=== PATIENT | female | born 1930 | race Caucasian/White ===

== ENCOUNTER 2016-04-24 17:53 | Inpatient (IN) | payer MEDICARE, BC ==
[2016-04-24] MEDS ORDERED: NS 0.9% 1000 ML* 2,000 ML IV ONE (19:22)
[2016-04-24 19:41] LABS: Hematocrit 42 % (35-47); Mean Corpuscular HGB Conc 33 g/dl (31-36); Mean Corpuscular Hemoglobin 30 pg (27-31); Mean Corpuscular Volume 90 fL (80-97); Mean Platelet Volume 10 um3 (7.4-10.4); Red Blood Count 4.68 10^6/ul (4.0-5.4); Red Cell Distribution Width 15 % (10.5-15); White Blood Count 13.3 10^3/ul (3.5-10.8)
[2016-04-24 19:53] LABS: Albumin 4.2 g/dL (3.2-5.2); BUN/Creatinine Ratio 18.3 (8-20); C Reactive Protein 2.63 mg/L (< 5.00); Calcium 10.1 mg/dL (8.6-10.3); EGFR African American 64.9 (>60); EGFR Non-African American 50.5 (>60); Globulin 3.1 g/dL (2-4); Magnesium 2.4 mg/dL (1.9-2.7); Potassium 3.9 mmol/L (3.5-5.0); Total Bilirubin 0.4 mg/dL (0.2-1.0); Total Protein 7.3 g/dL (6.4-8.9)
[2016-04-24 20:02] LABS: TSH (Thyroid Stimulating Horm) 4.41 mcIU/mL (0.34-5.60)
[2016-04-24] MEDS ORDERED: Ondansetron INJ* 2 MG/ML VIAL IV ONE (20:06)
[2016-04-24] MEDS ORDERED: Iodixanol* (CONTRAST) 320 MG/ML 100 ML SDV IV ONE (20:24)
[2016-04-24] MEDS ORDERED: Metoclopramide IV* 5 MG/ML 2 ML VIAL IV ONE (21:06)
--- NOTE | 2016-04-24 22:11 | RAD ---
Indication: Vomiting. CT of the abdomen and pelvis was performed after IV contrast administration. No oral contrast was given. Administered 85.0 ml of VISAPAQUE 320 mgi/ml. Coronal and sagittal reconstructed images were obtained. Lung bases demonstrate no pleural fluid, nodules or masses. Heart is of normal size without evidence of pericardial effusion. Liver is normal in size. There is no intrahepatic ductal dilatation is noted. There is a low density lesion in the lateral segment of the left lobe of liver measuring 8 mm may represent a small hemangioma. The gallbladder demonstrates multiple gallstones. No pericholecystic fluid or wall thickening is identified. Common duct is not dilated. Pancreas demonstrates no mass or pancreatic ductal dilatation. The spleen is normal in size. No adrenal masses are noted. The kidneys demonstrate symmetric nephrograms without focal lesions. Aorta and inferior vena cava are unremarkable. There are dilated loops of small bowel with a dilated stomach noted. There are collapsed distal loops of small bowel noted. There is likely a zone of transition in the left lower quadrant of the abdomen. This is consistent with a distal small bowel obstruction. Small amount of free fluid is noted in the cul-de-sac. The uterus and ovaries are unremarkable. IMPRESSION: FINDINGS CONSISTENT WITH SMALL BOWEL OBSTRUCTION WITH A ZONE OF TRANSITION IN THE LEFT LOWER QUADRANT. LITHIASIS WITHOUT BILIARY DUCTAL DILATATION. LOW DENSITY LESION IN THE LEFT LOBE OF LIVER MAY REPRESENT A SMALL HEMANGIOMA.
--- NOTE | 2016-04-24 22:31 | ED ---
Miguel A Davis Anna, scribed for Paco Arana MD on 04/24/16 at 1854 . GI/ HPI - HPI Summary HPI Summary: Patient is an 85 y/o female coming to presenting with sudden onset of vomiting that began at 10:30 this morning. She is vomiting every thirty minutes. The vomit is light green the first few times and has become a dark brown in more recent emesis. Exacerbated by food or water intake. Denies diarrhea, blood in the stool, abd surgery, abd pain, bloating, hx of CHF. No BM today. BM yesterday was normal. Twenty years ago she had a heart problem, but she does not normally collect fluid. - History of Current Complaint Chief Complaint: EDNauseaVomitDiarrh Time Seen by Provider: 04/24/16 18:28 Stated Complaint: GENERAL ILLNESS Hx Obtained From: Patient, Family/Stringer Machine Tender - Accompanied by Onset/Duration: Started Hours Ago, Still Present Timing: Lasting Hours Pain Intensity: 4 - Allergy/Home Medications Allergies/Adverse Reactions: Allergies Allergy/AdvReac Type Severity Reaction Status Date / Time Codeine Allergy Severe Nausea And Verified 01/04/15 13:46 Vomiting Influenza Vaccines Allergy Unknown Unknown Verified 01/04/15 13:46 Reaction Details Home Medications: Home Medications Ezetimibe TAB* [Zetia TAB*] 10 mg PO DAILY 04/24/16 [History Confirmed 04/24/16] PMH/Surg Hx/FS Hx/Imm Hx Previously Healthy: No Endocrine/Hematology History: Reports: Hx Anticoagulant Therapy - HX COUMADIN Cardiovascular History: Reports: Hx Coronary Artery Disease, Hx Deep Vein Thrombosis - RLE DVT 2011, Hx Hypercholesterolemia, Hx Hypertension, Other Cardiovascular Problems/Disorders - CHRONIC LE EDEMA, BUT PT STATES NO LONGER ON DIURETIC GI History: Reports: Hx Gastroesophageal Reflux Disease Denies: Hx Gastrointestinal Bleed - NEW DX LOWER GI BLEED 12/29/12 Sensory History: Reports: Hx Contacts or Glasses Opthamlomology History: Reports: Hx Contacts or Glasses Neurological History: Reports: Other Neuro Impairments/Disorders - 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 PERCUTANIOUS TRANSLUMINAL CORONARY ANGIOPLASTY Infectious Disease History: No Infectious Disease History: Denies: Traveled Outside the [place] in Last 30 Days - Family History Known Family History: Positive: Hypertension - Social History Occupation: Retired Lives: With Family Alcohol Use: Daily Substance Use Type: Reports: None Smoking Status (MU): Never Smoked Tobacco Review of Systems Positive: Vomiting Psychological: Normal All Other Systems Reviewed And Are Negative: Yes Physical Exam Triage Information Reviewed: Yes Vital Signs On Initial Exam: Initial Vitals Temp Pulse Resp BP Pulse Ox 98.7 F 89 20 161/107 94 04/24/16 18:16 04/24/16 18:16 04/24/16 18:16 04/24/16 18:16 04/24/16 18:16 Vital Signs Reviewed: Yes Appearance: Positive: No Pain Distress, Ill-Appearing - Mildly Skin: Positive: Warm, Skin Color Reflects Adequate Perfusion, Dry Head/Face: Positive: Normal Head/Face Inspection Eyes: Positive: EOMI, LEIDY ENT: Positive: Normal ENT inspection Neck: Positive: Supple, Nontender Respiratory/Lung Sounds: Positive: Clear to Auscultation, Breath Sounds Present Cardiovascular: Positive: RRR Abdomen Description: Positive: Nontender, Soft Bowel Sounds: Positive: Hypoactive Musculoskeletal: Positive: Normal, Strength/ROM Intact Neurological: Positive: Normal, Sensory/Motor Intact, Alert, Oriented to Person Place, Time Psychiatric: Positive: Affect/Mood Appropriate - Neche Coma Scale Coma Scale Total: 15 Diagnostics - Vital Signs Vital Signs Temp Pulse Resp BP Pulse Ox 04/24/16 18:30 84 18 172/96 98 04/24/16 18:29 82 18 98 04/24/16 18:27 145/82 04/24/16 18:16 98.7 F 89 20 161/107 94 - Laboratory Lab Results: Lab Results 04/24/16 04/24/16 04/24/16 Range/Units 18:00 18:00 18:00 WBC 13.3 H (3.5-10.8) 10^3/ul RBC 4.68 (4.0-5.4) 10^6/ul Hgb 14.0 (12.0-16.0) g/dl Hct 42 (35-47) % MCV 90 (80-97) fL MCH 30 (27-31) pg MCHC 33 (31-36) g/dl RDW 15 (10.5-15) % Plt Count 283 (150-450) 10^3/ul MPV 10 (7.4-10.4) um3 Neut % (Auto) 74.6 (38-83) % Lymph % (Auto) 19.0 L (25-47) % [place] % (Auto) 4.8 (1-9) % Eos % (Auto) 1.0 (0-6) % Baso % (Auto) 0.6 (0-2) % Absolute Neuts (auto) 9.9 H (1.5-7.7) 10^3/ul Absolute Lymphs (auto) 2.5 (1.0-4.8) 10^3/ul Absolute Monos (auto) 0.6 (0-0.8) 10^3/ul Absolute Eos (auto) 0.1 (0-0.6) 10^3/ul Absolute Basos (auto) 0.1 (0-0.2) 10^3/ul Absolute Nucleated RBC 0.01 10^3/ul Nucleated RBC % 0 INR (Anticoag Therapy) 0.85 L (0.89-1.11) APTT 22.5 L (26.0-36.3) seconds Sodium 137 (133-145) mmol/L Potassium 3.9 (3.5-5.0) mmol/L Chloride 102 (101-111) mmol/L Carbon Dioxide 26 (22-32) mmol/L Anion Gap 9 (2-11) mmol/L BUN 19 (6-24) mg/dL Creatinine 1.04 H (0.51-0.95) mg/dL Est GFR ( Amer) 64.9 (>60) Est GFR (Non-Af Amer) 50.5 (>60) BUN/Creatinine Ratio 18.3 (8-20) Glucose 129 H (70-100) mg/dL Calcium 10.1 (8.6-10.3) mg/dL Magnesium 2.4 (1.9-2.7) mg/dL Total Bilirubin 0.40 (0.2-1.0) mg/dL AST 22 (13-39) U/L ALT 21 (7-52) U/L Alkaline Phosphatase 98 (34-104) U/L Total Creatine Kinase 49 (10-223) U/L CK-MB (CK-2) 1.4 (0.6-6.3) ng/mL Troponin I 0.00 (<0.04) ng/mL C-Reactive Protein 2.63 (< 5.00) mg/L Total Protein 7.3 (6.4-8.9) g/dL Albumin 4.2 (3.2-5.2) g/dL Globulin 3.1 (2-4) g/dL Albumin/Globulin Ratio 1.4 (1-3) Lipase 15 (11.0-82.0) U/L TSH 4.41 (0.34-5.60) mcIU/mL Influenza A (Rapid) (Negative) Influenza B (Rapid) (Negative) 04/24/16 Range/Units 20:43 WBC (3.5-10.8) 10^3/ul RBC (4.0-5.4) 10^6/ul Hgb (12.0-16.0) g/dl Hct (35-47) % MCV (80-97) fL MCH (27-31) pg MCHC (31-36) g/dl RDW (10.5-15) % Plt Count (150-450) 10^3/ul MPV (7.4-10.4) um3 Neut % (Auto) (38-83) % Lymph % (Auto) (25-47) % [place] % (Auto) (1-9) % Eos % (Auto) (0-6) % Baso % (Auto) (0-2) % Absolute Neuts (auto) (1.5-7.7) 10^3/ul Absolute Lymphs (auto) (1.0-4.8) 10^3/ul Absolute Monos (auto) (0-0.8) 10^3/ul Absolute Eos (auto) (0-0.6) 10^3/ul Absolute Basos (auto) (0-0.2) 10^3/ul Absolute Nucleated RBC 10^3/ul Nucleated RBC % INR (Anticoag Therapy) (0.89-1.11) APTT (26.0-36.3) seconds Sodium (133-145) mmol/L Potassium (3.5-5.0) mmol/L Chloride (101-111) mmol/L Carbon Dioxide (22-32) mmol/L Anion Gap (2-11) mmol/L BUN (6-24) mg/dL Creatinine (0.51-0.95) mg/dL Est GFR ( Amer) (>60) Est GFR (Non-Af Amer) (>60) BUN/Creatinine Ratio (8-20) Glucose (70-100) mg/dL Calcium (8.6-10.3) mg/dL Magnesium (1.9-2.7) mg/dL Total Bilirubin (0.2-1.0) mg/dL AST (13-39) U/L ALT (7-52) U/L Alkaline Phosphatase (34-104) U/L Total Creatine Kinase (10-223) U/L CK-MB (CK-2) (0.6-6.3) ng/mL Troponin I (<0.04) ng/mL C-Reactive Protein (< 5.00) mg/L Total Protein (6.4-8.9) g/dL Albumin (3.2-5.2) g/dL Globulin (2-4) g/dL Albumin/Globulin Ratio (1-3) Lipase (11.0-82.0) U/L TSH (0.34-5.60) mcIU/mL Influenza A (Rapid) Negative (Negative) Influenza B (Rapid) Negative (Negative) Result Diagrams: 04/24/16 18:00 04/24/16 18:00 Lab Statement: Any lab studies that have been ordered have been reviewed, and results considered in the medical decision making process. - CT CT Abd/Pel CT Interpretation: Positive (See Comments) CT Interpretation Completed By: Radiologist - IMPRESSION: FINDINGS CONSISTENT WITH SMALL BOWEL OBSTRUCTION WITH A ZONE OF TRANSITION IN THE LEFT LOWER QUADRANT. LITHIASIS WITHOUT BILIARY DUCTAL DILATATION. LOW DENSITY LESION IN THE LEFT LOBE OF LIVER MAY REPRESENT A SMALL HEMANGIOMA. GIGU Course/Dx - Course Assessment/Plan: DISCUSSED RESULTS WITH PATIENT. SURGERY CONSULTED AND SAW PATIENT IN ED. ADMIT HOSPITALIST STABLE. - Diagnoses Provider Diagnoses: SBO (small bowel obstruction) - Physician Notifications Discussed Care Of Patient With: Dr. Lackey (hospitalist) at 22:19. Accepts patient for admission. Dr. Dupree (surgeon) at 22:21. Patient will be seen by Dr. Dupree. Discharge - Discharge Plan Condition: Stable Disposition: ADMITTED TO [facility] Referrals: Aroldo Gomez MD [Primary Care Provider] - The documentation as recorded by the Miguel A chowdary Anna accurately reflects the service I personally performed and the decisions made by me, Paco Arana MD.
--- NOTE | 2016-04-24 22:33 | HP ---
H&P (Free Text) History and Physical: PCP: Sera Gomez MD Date/Time of Evaluation: 04/24/2016 2245 CC: abdominal pain, N/V HPI: Mrs Rice is an 85YO female reporting onset of abdominal pain and bloating associated with intractable N/V yesterday AM around 1030. She continued to worsen throughout today with symptoms becoming severe enough to prompt her to present this evening. She denies F/C, diarrhea, change in bowel/ bladder, black or bloody content to emesis, or other issues. Work up reveals a CT abd/pel W revealing a SBO with transition in the LLQ which is unexpected as she has no history of abdominal surgery and no prior SBO. Ramila Dupree MD evaluated her in the ED and agrees there is no surgical abdomen at this time. He will continue to follow. PMedHx B subdural hematoma 12/2011 while on warfarin after a fall s/p B debi holes via Star Moise MD neurosurgery LLE DVT 08/2011 CAD s/p angioplasty x2 HTN HLD GERD Allergies Influenza Vaccines Allergy (Unknown, Verified 01/04/15 13:46) Unknown Reaction Details pt states allergic to components, not eggs. Codeine Adverse Reaction (Mild, Verified 04/24/16 22:42) Nausea And Vomiting Ambulatory Orders Omeprazole CAP* [PriLOSEC CAP*] 40 mg PO DAILY 09/11/12 Aspirin EC Low Dose* [Ecotrin EC Low Dose*] 81 mg PO DAILY 12/29/12 Diltiazem CD CAP* [Cardizem CD CAP*] 180 mg PO DAILY 01/04/15 LevoCETirizine TAB (NF) [Xyzal TAB (NF)] 5 mg PO DAILY 01/04/15 Ezetimibe TAB* [Zetia TAB*] 10 mg PO DAILY 04/24/16 PSurgHx no abdominal procedures SocHx: former smoker w/ ~20PYHX, social alcohol, no recreational drugs; lives at home with her , has 1 adult daughter, 1 son passed from suicide; full code status FamHx: reviewed, non-contributory to presentation ROS: as above, otherwise reviewed and all were negative Constitutional: NAD, normally developed, overweight white female vitals: Vital Signs Temp 37.1 C 04/24/16 18:16 Pulse 84 04/24/16 18:30 Resp 18 04/24/16 18:30 BP 172/96 04/24/16 18:30 Pulse Ox 98 04/24/16 18:30 Intake & Output 04/23/16 04/24/16 04/24/16 23:59 11:59 23:59 Intake Total 2049 Balance 2049 Weight 150 lb Intake: IV Fluids 1999 IVPB 50 HEENM: atraumatic; sclera/conjunctiva: non-icteric/clear; hearing: clinically intact; oropharynx: clear, mucosa moist Neck: soft tissue: non-tender; thyroid: normal Pulmonary: clear to auscultation bilaterally, good aeration, no accessory muscle use CV: RR/RR, normal S1S2, no carotid bruit, no jugular venous distention, 2+ B DP/ PT, no edema Abdominal: soft, mildly distended, mild to moderate diffuse tenderness without rebound/guarding/rigidity, hyperactive bowel sounds, no hepatosplenomegaly or masses, no costovertebral angle tenderness Musculoskeletal: general: grossly intact; gait: stable Integumental: normal appearance and texture Psychiatric orientation: AA&O to PPS affect: ill-appearing mood: pleasant eye contact: good content: reliable responses: timely insight: good Testing: Lab Results 04/24/16 04/24/16 04/24/16 Range/Units 18:00 18:00 18:00 WBC 13.3 H (3.5-10.8) 10^3/ul RBC 4.68 (4.0-5.4) 10^6/ul Hgb 14.0 (12.0-16.0) g/dl Hct 42 (35-47) % MCV 90 (80-97) fL MCH 30 (27-31) pg MCHC 33 (31-36) g/dl RDW 15 (10.5-15) % Plt Count 283 (150-450) 10^3/ul MPV 10 (7.4-10.4) um3 Neut % (Auto) 74.6 (38-83) % Lymph % (Auto) 19.0 L (25-47) % [place] % (Auto) 4.8 (1-9) % Eos % (Auto) 1.0 (0-6) % Baso % (Auto) 0.6 (0-2) % Absolute Neuts (auto) 9.9 H (1.5-7.7) 10^3/ul Absolute Lymphs (auto) 2.5 (1.0-4.8) 10^3/ul Absolute Monos (auto) 0.6 (0-0.8) 10^3/ul Absolute Eos (auto) 0.1 (0-0.6) 10^3/ul Absolute Basos (auto) 0.1 (0-0.2) 10^3/ul Absolute Nucleated RBC 0.01 10^3/ul Nucleated RBC % 0 INR (Anticoag Therapy) 0.85 L (0.89-1.11) APTT 22.5 L (26.0-36.3) seconds Sodium 137 (133-145) mmol/L Potassium 3.9 (3.5-5.0) mmol/L Chloride 102 (101-111) mmol/L Carbon Dioxide 26 (22-32) mmol/L Anion Gap 9 (2-11) mmol/L BUN 19 (6-24) mg/dL Creatinine 1.04 H (0.51-0.95) mg/dL Est GFR ( Amer) 64.9 (>60) Est GFR (Non-Af Amer) 50.5 (>60) BUN/Creatinine Ratio 18.3 (8-20) Glucose 129 H (70-100) mg/dL Calcium 10.1 (8.6-10.3) mg/dL Magnesium 2.4 (1.9-2.7) mg/dL Total Bilirubin 0.40 (0.2-1.0) mg/dL AST 22 (13-39) U/L ALT 21 (7-52) U/L Alkaline Phosphatase 98 (34-104) U/L Total Creatine Kinase 49 (10-223) U/L CK-MB (CK-2) 1.4 (0.6-6.3) ng/mL Troponin I 0.00 (<0.04) ng/mL C-Reactive Protein 2.63 (< 5.00) mg/L Total Protein 7.3 (6.4-8.9) g/dL Albumin 4.2 (3.2-5.2) g/dL Globulin 3.1 (2-4) g/dL Albumin/Globulin Ratio 1.4 (1-3) Lipase 15 (11.0-82.0) U/L TSH 4.41 (0.34-5.60) mcIU/mL Influenza A (Rapid) (Negative) Influenza B (Rapid) (Negative) 04/24/16 Range/Units 20:43 WBC (3.5-10.8) 10^3/ul RBC (4.0-5.4) 10^6/ul Hgb (12.0-16.0) g/dl Hct (35-47) % MCV (80-97) fL MCH (27-31) pg MCHC (31-36) g/dl RDW (10.5-15) % Plt Count (150-450) 10^3/ul MPV (7.4-10.4) um3 Neut % (Auto) (38-83) % Lymph % (Auto) (25-47) % [place] % (Auto) (1-9) % Eos % (Auto) (0-6) % Baso % (Auto) (0-2) % Absolute Neuts (auto) (1.5-7.7) 10^3/ul Absolute Lymphs (auto) (1.0-4.8) 10^3/ul Absolute Monos (auto) (0-0.8) 10^3/ul Absolute Eos (auto) (0-0.6) 10^3/ul Absolute Basos (auto) (0-0.2) 10^3/ul Absolute Nucleated RBC 10^3/ul Nucleated RBC % INR (Anticoag Therapy) (0.89-1.11) APTT (26.0-36.3) seconds Sodium (133-145) mmol/L Potassium (3.5-5.0) mmol/L Chloride (101-111) mmol/L Carbon Dioxide (22-32) mmol/L Anion Gap (2-11) mmol/L BUN (6-24) mg/dL Creatinine (0.51-0.95) mg/dL Est GFR ( Amer) (>60) Est GFR (Non-Af Amer) (>60) BUN/Creatinine Ratio (8-20) Glucose (70-100) mg/dL Calcium (8.6-10.3) mg/dL Magnesium (1.9-2.7) mg/dL Total Bilirubin (0.2-1.0) mg/dL AST (13-39) U/L ALT (7-52) U/L Alkaline Phosphatase (34-104) U/L Total Creatine Kinase (10-223) U/L CK-MB (CK-2) (0.6-6.3) ng/mL Troponin I (<0.04) ng/mL C-Reactive Protein (< 5.00) mg/L Total Protein (6.4-8.9) g/dL Albumin (3.2-5.2) g/dL Globulin (2-4) g/dL Albumin/Globulin Ratio (1-3) Lipase (11.0-82.0) U/L TSH (0.34-5.60) mcIU/mL Influenza A (Rapid) Negative (Negative) Influenza B (Rapid) Negative (Negative) CT abd/pel W, personally reviewed: IMPRESSION: FINDINGS CONSISTENT WITH SMALL BOWEL OBSTRUCTION WITH A ZONE OF TRANSITION IN THE LEFT LOWER QUADRANT. LITHIASIS WITHOUT BILIARY DUCTAL DILATATION. LOW DENSITY LESION IN THE LEFT LOBE OF LIVER MAY REPRESENT A SMALL HEMANGIOMA. Impression: 85F presents with SBO, transition in LLQ, no HX abdominal surgery DIAGNOSIS & PLAN Primary SBO : transition in LLQ, no HX abdominal surgery : W MD Joon surgery evaluated in ED, will follow : NG to LIS : strict I&Os : NPO : pain control : anti-emetics : check 2vXRY abdomen in AM : supportive care Secondary B subdural hematoma 12/2011 : while on warfarin after a fall s/p B debi holes via Star Moise MD neurosurgery : no acute issues LLE DVT 08/2011 : SCDs & heparin SQ CAD : s/p angioplasty x2 : hold aspirin until able to take PO again HTN : hold diltiazem CD until able to take PO again : IV hydralazine PRN HLD : hold exetimibe until taking PO GERD : pantoprazole IV Admission Rational: inpatient for management of SBO not anticipated to resolve adequately to allow for discharge w/i 48h DVTp: SCDs & heparin SQ Code Status: full HCP:
[2016-04-24] MEDS ORDERED: LORazepam INJ* 2 MG/ML 1 ML VIAL IV PRN (22:39)
[2016-04-24] MEDS ORDERED: HYDROmorphone INJ* 1 MG/ML CARPUJECT SYRINGE IV PRN (22:39)
[2016-04-24] MEDS ORDERED: Acetaminophen SUPP* 650 MG SUPP PR PRN (22:41)
[2016-04-24] MEDS ORDERED: PROCHLORPERAZINE INJ 5 MG/ML 2 ML VIAL IV PRN (22:41)
[2016-04-24] MEDS ORDERED: Ondansetron INJ* 2 MG/ML VIAL IV PRN (22:41)
[2016-04-24] MEDS: NS 0.9% 1000 ML* 1,000 ML IV SCH (23:31)
[2016-04-24] MEDS ORDERED: hydrALAZINE IV* 20 MG/ML VIAL IV PRN (23:33)
[2016-04-25] MEDS: Pantoprazole IV* 40 MG IV SCH ×2 (00:04→08:19)
--- NOTE | 2016-04-25 00:21 | CONS ---
CONSULTATION REPORT: DATE OF CONSULTATION: 04/24/16 REFERRING PROVIDER: Alvin Lackey MD. REASON FOR CONSULTATION: Small bowel obstruction. HISTORY OF PRESENT ILLNESS: Ms. Lalitha Rice is an 85-year-old woman who was doing well in her usual state of health, this morning when she woke up, did not have her normal bowel movement. Later in the morning, she developed both abdominal pain and profuse nausea and vomiting, which she described as bilious, which carried over the course of the day and presented to the emergency room some time this afternoon. She has not had any flatus nor a bowel movement. She did have a normal bowel movement yesterday. She has had some mild discomfort, nothing severe. She has had no back discomfort. No fever, shakes, or chills. In the emergency room, she was noted to be afebrile with normal vital signs. Laboratory workup included white blood cell count of 13,000. She underwent a CT scan of the abdomen and pelvis, which I did review. This was done without oral contrast due to her profuse vomiting. This does show some distended proximal small bowel and stomach with some collapsed small bowel distally with likely a zone of transition in left lower quadrant. No other acute findings. There was no free fluid noted. She does have gallstones; however, without evidence of cholecystitis. She has not had prior abdominal surgery. She states she underwent a colonoscopy with Dr. Lopez several years ago, which was unremarkable. PAST MEDICAL HISTORY: 1. Peripheral vascular disease. 2. Gastroesophageal reflux disease. 3. Hypercholesterolemia. PAST SURGICAL HISTORY: Bilateral open carotid endarterectomies. MEDICATIONS: Include: 1. Xyzal 5 mg daily. 2. Aspirin 81 mg daily. 3. Omeprazole 40 mg daily. 4. Zetia 10 mg daily. 5. Diltiazem 180 mg daily. ALLERGIES: She is allergic to CODEINE and INFLUENZA VACCINE. SOCIAL HISTORY: She is . Lives with her . She has a well-grown daughter who lives in the area. Does not use tobacco. Drinks alcohol on a social basis. PHYSICAL EXAMINATION: Temperature 98.7, pulse 85, blood pressure 172/96. In general, she is a well-developed elderly woman who actually appears much younger than her stated age. She is awake, alert, vibrant, in no apparent distress. Lungs: Clear to auscultation with normal respiratory effort. Heart was regular rate and rhythm without murmurs, rubs, gallops. Her abdomen is soft , slightly distended. No prior surgical incision. There is no inguinal, umbilical, incisional or ventral hernias. She had decreased bowel sounds throughout but there are some bowel sounds that are rushing but not high pitched or tinkling. She has some mild tenderness. There is no rebound, guarding, peritoneal signs or rigidity. Psychiatric: She is awake, alert and oriented x3. She has normal judgment and insight. IMPRESSION: Nausea, vomiting with a CT scan consistent with a small bowel obstruction in a woman who has not had prior abdominal surgery. This has been present for less than just about 12 hours. No signs of peritonitis. She also has gallstones on her CT scan. Certainly this may be something more typical of a gastroenteritis and not a true bowel obstruction; however, certainly could have an adhesive small bowel disease or even gallstone ileus in someone her age, although she gives no recent history of gallbladder issues or problems with right upper quadrant abdominal pain of that nature. For now, she is being admitted to the hospitalist service and a nasogastric tube is to be inserted. She will be kept n.p.o. Repeat laboratory values and abdominal x- rays will be obtained tomorrow. Follow her course clinically over the next 24 to 48 hours. If she worsens or abdominal films do not improve, she may require laparoscopy and/or laparotomy. We discussed all of this with her. Thank you for the consultation. We will follow her closely with you. CC: [facility]; Aroldo Gomez MD * [id number]/[facility] #: [id number] LIAM
[2016-04-25] MEDS: Heparin VIAL(*) 5000 UNITS/ML VIAL (FIVE THOUSAND) SUBCUT SCH ×3 (05:42→22:05)
[2016-04-25 05:47] LABS: Hematocrit 40 % (35-47); Hemoglobin 13.1 g/dl (12.0-16.0); Mean Corpuscular HGB Conc 33 g/dl (31-36); Mean Corpuscular Hemoglobin 30 pg (27-31); Mean Corpuscular Volume 91 fL (80-97); Mean Platelet Volume 10 um3 (7.4-10.4); Red Blood Count 4.36 10^6/ul (4.0-5.4); Red Cell Distribution Width 15 % (10.5-15); White Blood Count 11.3 10^3/ul (3.5-10.8)
[2016-04-25 06:09] LABS: Calcium 8.6 mg/dL (8.6-10.3); EGFR African American 77.7 (>60); EGFR Non-African American 60.4 (>60); Potassium 3.6 mmol/L (3.5-5.0)
--- NOTE | 2016-04-25 08:07 | RAD ---
HISTORY: Follow-up small bowel obstruction COMPARISONS: CT dated April 24, 2016 VIEWS: Frontal supine and upright views of the abdomen. FINDINGS: BOWEL: There is persistent distention mild dilatation of small bowel loops. This is somewhat decreased from the 04/24/2016 CT. There is large amount stool within the distal colon. CALCULI: There are no abnormal calculi. BONES AND SOFT TISSUES: Mild degenerative changes are noted. OTHER FINDINGS: The lung bases are clear. There is no subphrenic gas. A gastric tube is noted in the region of the pylorus. A gastric tube appears to be prepyloric, supine views. Contrast is noted within the bladder. IMPRESSION: PERSISTENT BUT IMPROVING SMALL BOWEL OBSTRUCTIVE PATTERN.
--- NOTE | 2016-04-25 11:00 | PN ---
Subjective Date of Service: 04/25/16 Interval History: Patient seen and examined at bedside. She is laying in bed with NGT to suction. She states she is feeling "much better" this morning. She denies fever/chills, CP, SOB, abd pain, n/v. She would like the NGT removed as soon as possible but understands why she has it in. Denies flatus or BM. She states that she is planning on getting up and walking around later on this morning. Family History: Unchanged from Admission Social History: Unchanged from Admission Past Medical History: Unchanged from Admission Objective Active Medications: Acetaminophen (Tylenol Supp*) 650 mg [place] Q6H PRN PRN Reason: FEVER/PAIN Heparin Sodium (Porcine) (Heparin Vial(*)) 5,000 units SUBCUT Q8HR [facility] Last Admin: 04/25/16 05:42 Dose: 5,000 units Hydralazine HCl (Apresoline Iv*) 10 mg IV Q4H PRN PRN Reason: Systolic >160 Hydromorphone HCl (Dilaudid Iv*) 0.5 mg IV Q2H PRN PRN Reason: PAIN Last Admin: 04/24/16 23:30 Dose: 0.5 mg Sodium Chloride (Ns 0.9% 1000 Ml*) 1,000 mls @ 100 mls/hr IV PER RATE [facility] [place] Last Admin: 04/24/16 23:31 Dose: 100 mls/hr Lorazepam (Ativan Inj*) 0.5 mg IV BEDTIME PRN PRN Reason: SLEEP Ondansetron HCl (Zofran Inj*) 4 mg IV Q6H PRN PRN Reason: NAUSEA Pantoprazole Sodium (Protonix Iv*) 40 mg IV DAILY [facility] [place] Last Admin: 04/25/16 08:19 Dose: 40 mg Prochlorperazine Edisylate (Compazine Inj*) 10 mg IV Q6H PRN PRN Reason: NAUSEA Last Admin: 04/24/16 23:30 Dose: 10 mg Vital Signs 04/24/16 04/25/16 04/25/16 23:40 00:00 00:01 Temperature Pulse Rate 90 88 86 Respiratory 20 16 15 Rate Blood Pressure 146/74 125/56 (mmHg) O2 Sat by Pulse 88 93 93 Oximetry 04/25/16 04/25/16 04/25/16 00:08 00:30 00:57 Temperature 97.5 F Pulse Rate 82 Respiratory 12 14 16 Rate Blood Pressure 125/56 133/67 (mmHg) O2 Sat by Pulse Oximetry 04/25/16 03:35 Temperature 98.2 F Pulse Rate 83 Respiratory 18 Rate Blood Pressure 149/82 (mmHg) O2 Sat by Pulse 94 Oximetry Oxygen Devices in Use Now: None Appearance: Older female, lying in bed, in NAD, pleasant, cooperative. Eyes: PERRLA Ears/Nose/Mouth/Throat: Mucous Membranes Moist Neck: NL Appearance and Movements; NL JVP Respiratory: Symmetrical Chest Expansion and Respiratory Effort, Clear to Auscultation Cardiovascular: NL Sounds; No Murmurs; No JVD, RRR Abdominal: NL Sounds; No Tenderness; No Distention - mild diffuse tenderness, hypoactive BS Extremities: No Edema Skin: No Rash or Ulcers Neurological: Alert and Oriented x 3 Lines/Tubes/Other Access: Clean, Dry and Intact Peripheral IV Result Diagrams: 04/25/16 05:10 04/25/16 05:10 Additional Lab and Data: Lab Results 04/24/16 04/24/16 04/24/16 Range/Units 18:00 18:00 18:00 WBC 13.3 H (3.5-10.8) 10^3/ul RBC 4.68 (4.0-5.4) 10^6/ul Hgb 14.0 (12.0-16.0) g/dl Hct 42 (35-47) % MCV 90 (80-97) fL MCH 30 (27-31) pg MCHC 33 (31-36) g/dl RDW 15 (10.5-15) % Plt Count 283 (150-450) 10^3/ul MPV 10 (7.4-10.4) um3 Neut % (Auto) 74.6 (38-83) % Lymph % (Auto) 19.0 L (25-47) % [place] % (Auto) 4.8 (1-9) % Eos % (Auto) 1.0 (0-6) % Baso % (Auto) 0.6 (0-2) % Absolute Neuts (auto) 9.9 H (1.5-7.7) 10^3/ul Absolute Lymphs (auto) 2.5 (1.0-4.8) 10^3/ul Absolute Monos (auto) 0.6 (0-0.8) 10^3/ul Absolute Eos (auto) 0.1 (0-0.6) 10^3/ul Absolute Basos (auto) 0.1 (0-0.2) 10^3/ul Absolute Nucleated RBC 0.01 10^3/ul Nucleated RBC % 0 INR (Anticoag Therapy) 0.85 L (0.89-1.11) APTT 22.5 L (26.0-36.3) seconds Sodium 137 (133-145) mmol/L Potassium 3.9 (3.5-5.0) mmol/L Chloride 102 (101-111) mmol/L Carbon Dioxide 26 (22-32) mmol/L Anion Gap 9 (2-11) mmol/L BUN 19 (6-24) mg/dL Creatinine 1.04 H (0.51-0.95) mg/dL Est GFR ( Amer) 64.9 (>60) Est GFR (Non-Af Amer) 50.5 (>60) BUN/Creatinine Ratio 18.3 (8-20) Glucose 129 H (70-100) mg/dL Calcium 10.1 (8.6-10.3) mg/dL Magnesium 2.4 (1.9-2.7) mg/dL Total Bilirubin 0.40 (0.2-1.0) mg/dL AST 22 (13-39) U/L ALT 21 (7-52) U/L Alkaline Phosphatase 98 (34-104) U/L Total Creatine Kinase 49 (10-223) U/L CK-MB (CK-2) 1.4 (0.6-6.3) ng/mL Troponin I 0.00 (<0.04) ng/mL C-Reactive Protein 2.63 (< 5.00) mg/L Total Protein 7.3 (6.4-8.9) g/dL Albumin 4.2 (3.2-5.2) g/dL Globulin 3.1 (2-4) g/dL Albumin/Globulin Ratio 1.4 (1-3) Lipase 15 (11.0-82.0) U/L TSH 4.41 (0.34-5.60) mcIU/mL Influenza A (Rapid) (Negative) Influenza B (Rapid) (Negative) 04/24/16 Range/Units 20:43 WBC (3.5-10.8) 10^3/ul RBC (4.0-5.4) 10^6/ul Hgb (12.0-16.0) g/dl Hct (35-47) % MCV (80-97) fL MCH (27-31) pg MCHC (31-36) g/dl RDW (10.5-15) % Plt Count (150-450) 10^3/ul MPV (7.4-10.4) um3 Neut % (Auto) (38-83) % Lymph % (Auto) (25-47) % [place] % (Auto) (1-9) % Eos % (Auto) (0-6) % Baso % (Auto) (0-2) % Absolute Neuts (auto) (1.5-7.7) 10^3/ul Absolute Lymphs (auto) (1.0-4.8) 10^3/ul Absolute Monos (auto) (0-0.8) 10^3/ul Absolute Eos (auto) (0-0.6) 10^3/ul Absolute Basos (auto) (0-0.2) 10^3/ul Absolute Nucleated RBC 10^3/ul Nucleated RBC % INR (Anticoag Therapy) (0.89-1.11) APTT (26.0-36.3) seconds Sodium (133-145) mmol/L Potassium (3.5-5.0) mmol/L Chloride (101-111) mmol/L Carbon Dioxide (22-32) mmol/L Anion Gap (2-11) mmol/L BUN (6-24) mg/dL Creatinine (0.51-0.95) mg/dL Est GFR ( Amer) (>60) Est GFR (Non-Af Amer) (>60) BUN/Creatinine Ratio (8-20) Glucose (70-100) mg/dL Calcium (8.6-10.3) mg/dL Magnesium (1.9-2.7) mg/dL Total Bilirubin (0.2-1.0) mg/dL AST (13-39) U/L ALT (7-52) U/L Alkaline Phosphatase (34-104) U/L Total Creatine Kinase (10-223) U/L CK-MB (CK-2) (0.6-6.3) ng/mL Troponin I (<0.04) ng/mL C-Reactive Protein (< 5.00) mg/L Total Protein (6.4-8.9) g/dL Albumin (3.2-5.2) g/dL Globulin (2-4) g/dL Albumin/Globulin Ratio (1-3) Lipase (11.0-82.0) U/L TSH (0.34-5.60) mcIU/mL Influenza A (Rapid) Negative (Negative) Influenza B (Rapid) Negative (Negative) Assess/Plan/Problems-Billing Assessment: Ms. Rice is an 85 yo female with a PMH of bilateral subdural hematoma s/p debi holes in 2011, LLE DVT (2011), CAD, HTN, HLD, and GERD who presented to the ED on 04/24/16 with abd pain and n/v that is secondary to SBO. - Patient Problems (1) Small bowel obstruction Code(s): K56.69 - OTHER INTESTINAL OBSTRUCTION Comment: Appreciate surgery consult. Abdomen KUB this AM shows persistent but improving small bowel obstruction pattern. Continue NGT to low intermttent wall suction. NPO Continue IVF, prn analgesia, and prn anti-emetics. (2) CAD (coronary artery disease) Code(s): I25.10 - ATHSCL HEART DISEASE OF [place] CORONARY ARTERY W/O ANG PCTRS Comment: Resume home ASA when taking PO. Patient has a history of angioplasty x 2. (3) HTN (hypertension) Code(s): I10 - ESSENTIAL (PRIMARY) HYPERTENSION Comment: Normotensive. Continue PRN hydralazine while NPO. Resume diltiazem CD when taking PO. (4) HLD (hyperlipidemia) Code(s): E78.5 - HYPERLIPIDEMIA, UNSPECIFIED Comment: Resume ezetimibe when taking PO. (5) GERD (gastroesophageal reflux disease) Code(s): K21.9 - GASTRO-ESOPHAGEAL REFLUX DISEASE WITHOUT ESOPHAGITIS Comment : Continue IV pantoprazole. Resume PO omeprazole when taking PO. (6) History of subdural hematoma Code(s): Z86.79 - PERSONAL HISTORY OF OTHER DISEASES OF THE CIRCULATORY SYSTEM Comment: Occurred after fall, while on warfarin, in 2011, s/p debi holes. Not an acute issue. (7) History of DVT of lower extremity Code(s): Z86.718 - PERSONAL HISTORY OF OTHER VENOUS THROMBOSIS AND EMBOLISM Comment: LLE DVT in 2011, not currently on anticoagulation. Continue SQ heparin and SCDs. (8) DVT prophylaxis Comment: SCDs and SQ heparin Status and Disposition: Inpatient admission. Anticipate LOS >2 days.
--- NOTE | 2016-04-25 13:40 | PN ---
Progress Note - Progress Note SOAP: Subjective: Patient seen at 0745 this morning She feels better today-not having any abdominal pain and improved nausea with the NGT in. No flatus or BM Objective: Temp Pulse Resp BP Pulse Ox 98.2 F 83 16 149/82 94 04/25/16 03:35 04/25/16 03:35 04/25/16 08:00 04/25/16 03:35 04/25/16 03:35 Intake & Output 04/23/16 04/24/16 04/25/16 04/26/16 06:59 06:59 06:59 06:59 Intake Total 2200 659 Output Total 2500 Balance -300 659 Weight 154 lb 3.2 oz Intake: IV Fluids 2100 659 ns 659 IVPB 100 Oral 0 0 Output: NG Tube Drainage Amount 1000 Emesis 1500 Other: # Voids 1 PEX: Comfortable--awake and alert in NAD Abd is soft and non-distended. Bowel sounds are present; there are rushing sounds but they are not high pitched or tinkling. No tenderness on palpation, no guarding or rebound. Laboratory Last Values WBC 11.3 10^3/ul (3.5-10.8) H 04/25/16 05:10 RBC 4.36 10^6/ul (4.0-5.4) 04/25/16 05:10 Hgb 13.1 g/dl (12.0-16.0) 04/25/16 05:10 Hct 40 % (35-47) 04/25/16 05:10 MCV 91 fL (80-97) 04/25/16 05:10 MCH 30 pg (27-31) 04/25/16 05:10 MCHC 33 g/dl (31-36) 04/25/16 05:10 RDW 15 % (10.5-15) 04/25/16 05:10 Plt Count 264 10^3/ul (150-450) 04/25/16 05:10 MPV 10 um3 (7.4-10.4) 04/25/16 05:10 Neut % (Auto) 63.9 % (38-83) 04/25/16 05:10 Lymph % (Auto) 27.2 % (25-47) 04/25/16 05:10 [place] % (Auto) 7.0 % (1-9) 04/25/16 05:10 Eos % (Auto) 0.7 % (0-6) 04/25/16 05:10 Baso % (Auto) 1.2 % (0-2) 04/25/16 05:10 Absolute Neuts (auto) 7.2 10^3/ul (1.5-7.7) 04/25/16 05:10 Absolute Lymphs (auto) 3.1 10^3/ul (1.0-4.8) 04/25/16 05:10 Absolute Monos (auto) 0.8 10^3/ul (0-0.8) 04/25/16 05:10 Absolute Eos (auto) 0.1 10^3/ul (0-0.6) 04/25/16 05:10 Absolute Basos (auto) 0.1 10^3/ul (0-0.2) 04/25/16 05:10 Absolute Nucleated RBC 0.01 10^3/ul 04/25/16 05:10 Nucleated RBC % 0 04/25/16 05:10 INR (Anticoag Therapy) 0.85 (0.89-1.11) L 04/24/16 18:00 APTT 22.5 seconds (26.0-36.3) L 04/24/16 18:00 Sodium 139 mmol/L (133-145) 04/25/16 05:10 Potassium 3.6 mmol/L (3.5-5.0) 04/25/16 05:10 Chloride 107 mmol/L (101-111) 04/25/16 05:10 Carbon Dioxide 28 mmol/L (22-32) 04/25/16 05:10 Anion Gap 4 mmol/L (2-11) 04/25/16 05:10 BUN 16 mg/dL (6-24) 04/25/16 05:10 Creatinine 0.89 mg/dL (0.51-0.95) 04/25/16 05:10 Est GFR ( Amer) 77.7 (>60) 04/25/16 05:10 Est GFR (Non-Af Amer) 60.4 (>60) 04/25/16 05:10 BUN/Creatinine Ratio 18.0 (8-20) 04/25/16 05:10 Glucose 111 mg/dL (70-100) H 04/25/16 05:10 Lactic Acid 0.8 mmol/L (0.5-2.0) 04/25/16 08:31 Calcium 8.6 mg/dL (8.6-10.3) 04/25/16 05:10 Magnesium 2.4 mg/dL (1.9-2.7) 04/24/16 18:00 Total Bilirubin 0.40 mg/dL (0.2-1.0) 04/24/16 18:00 AST 22 U/L (13-39) 04/24/16 18:00 ALT 21 U/L (7-52) 04/24/16 18:00 Alkaline Phosphatase 98 U/L (34-104) 04/24/16 18:00 Total Creatine Kinase 49 U/L (10-223) 04/24/16 18:00 CK-MB (CK-2) 1.4 ng/mL (0.6-6.3) 04/24/16 18:00 Troponin I 0.00 ng/mL (<0.04) 04/24/16 18:00 C-Reactive Protein 2.63 mg/L (< 5.00) 04/24/16 18:00 Total Protein 7.3 g/dL (6.4-8.9) 04/24/16 18:00 Albumin 4.2 g/dL (3.2-5.2) 04/24/16 18:00 Globulin 3.1 g/dL (2-4) 04/24/16 18:00 Albumin/Globulin Ratio 1.4 (1-3) 04/24/16 18:00 Lipase 15 U/L (11.0-82.0) 04/24/16 18:00 TSH 4.41 mcIU/mL (0.34-5.60) 04/24/16 18:00 Influenza A (Rapid) Negative (Negative) 04/24/16 20:43 Influenza B (Rapid) Negative (Negative) 04/24/16 20:43 AXR reviewed: Still with evidence of SBO (no oral contrast given with CT scan). Assessment: Small bowel obstruction--no previous abdominal surgery. No significant improvement although she feels better with the NGT in. Plan: Continue NGT/NPO/IVF Increase activity Recheck AXR in AM to follow- No urgent indication for operative intervention at this point but will see how she does the next 24-48 hrs--if no improvement or worsening, will require laparoscopy or laparotomy.
[2016-04-25 14:18] LABS: Urine Bacteria Absent (Absent); Urine Bilirubin Negative (Negative); Urine Glucose Negative (Negative); Urine Nitrite Negative (Negative)
[2016-04-25] MEDS: NS 0.9% 1000 ML* 1,000 ML IV SCH (17:21)
[2016-04-26] MEDS: NS 0.9% 1000 ML* 1,000 ML IV SCH (04:32)
[2016-04-26 06:03] LABS: Hematocrit 37 % (35-47); Hemoglobin 12.2 g/dl (12.0-16.0); Mean Corpuscular HGB Conc 33 g/dl (31-36); Mean Corpuscular Hemoglobin 30 pg (27-31); Mean Corpuscular Volume 91 fL (80-97); Mean Platelet Volume 9 um3 (7.4-10.4); Red Blood Count 4.02 10^6/ul (4.0-5.4); Red Cell Distribution Width 15 % (10.5-15); White Blood Count 10.2 10^3/ul (3.5-10.8)
[2016-04-26] MEDS: Heparin VIAL(*) 5000 UNITS/ML VIAL (FIVE THOUSAND) SUBCUT SCH ×3 (06:06→22:04)
[2016-04-26 06:24] LABS: BUN/Creatinine Ratio 16.7 (8-20); EGFR African American 99.2 (>60); EGFR Non-African American 77.2 (>60); Potassium 3.5 mmol/L (3.5-5.0)
[2016-04-26] MEDS: Pantoprazole IV* 40 MG IV SCH (07:53)
--- NOTE | 2016-04-26 08:45 | RAD ---
HISTORY: Small bowel obstruction COMPARISONS: April 25, 2016 VIEWS: Frontal supine and upright views of the abdomen. FINDINGS: BOWEL: There is a nonspecific bowel gas pattern, with nondilated small bowel gas noted. The small bowel dilatation noted on previous examinations further decreased. CALCULI: There are no abnormal calculi. BONES AND SOFT TISSUES: Mild degenerative changes are noted OTHER FINDINGS: The lung bases are clear. There is no subphrenic gas. A gastric tube is noted in the left upper quadrant. IMPRESSION: NONSPECIFIC BOWEL GAS PATTERN WITH FURTHER DECREASE IN THE CALIBER OF THE SMALL BOWEL
--- NOTE | 2016-04-26 09:39 | PN ---
Progress Note - Progress Note SOAP: Subjective: She continues to feel better-no abdominal pain She had a small BM this morning and passed a small amount of gas. She has been ambulating without difficulty. Objective: Temp Pulse Resp BP Pulse Ox 98.1 F 81 16 139/67 98 04/26/16 07:07 04/26/16 07:07 04/26/16 07:07 04/26/16 07:07 04/26/16 07:07 Intake & Output 04/24/16 04/25/16 04/26/16 04/27/16 06:59 06:59 06:59 06:59 Intake Total 2200 2253 Output Total 2500 1475 Balance -300 778 Weight 154 lb 3.2 oz Intake: IV Fluids 2100 2253 ns 2253 IVPB 100 Oral 0 0 Output: NG Tube Drainage Amount 1000 250 Urine 1225 Emesis 1500 Other: # Bowel Movements 1 Estimated Stool Amount Small # Voids 1 PEX Comfortable in NAD NGT in place-cannister with brownish clear output, not bilious. Abd is soft and non-distended. Bowel sounds are present and are not high pitched or tinkling. There is no tenderness or guarding. Laboratory Last Values WBC 10.2 10^3/ul (3.5-10.8) 04/26/16 05:49 RBC 4.02 10^6/ul (4.0-5.4) 04/26/16 05:49 Hgb 12.2 g/dl (12.0-16.0) 04/26/16 05:49 Hct 37 % (35-47) 04/26/16 05:49 MCV 91 fL (80-97) 04/26/16 05:49 MCH 30 pg (27-31) 04/26/16 05:49 MCHC 33 g/dl (31-36) 04/26/16 05:49 RDW 15 % (10.5-15) 04/26/16 05:49 Plt Count 222 10^3/ul (150-450) 04/26/16 05:49 MPV 9 um3 (7.4-10.4) 04/26/16 05:49 Neut % (Auto) 62.5 % (38-83) 04/26/16 05:49 Lymph % (Auto) 26.5 % (25-47) 04/26/16 05:49 [place] % (Auto) 6.9 % (1-9) 04/26/16 05:49 Eos % (Auto) 2.9 % (0-6) 04/26/16 05:49 Baso % (Auto) 1.2 % (0-2) 04/26/16 05:49 Absolute Neuts (auto) 6.3 10^3/ul (1.5-7.7) 04/26/16 05:49 Absolute Lymphs (auto) 2.7 10^3/ul (1.0-4.8) 04/26/16 05:49 Absolute Monos (auto) 0.7 10^3/ul (0-0.8) 04/26/16 05:49 Absolute Eos (auto) 0.3 10^3/ul (0-0.6) 04/26/16 05:49 Absolute Basos (auto) 0.1 10^3/ul (0-0.2) 04/26/16 05:49 Absolute Nucleated RBC 0 10^3/ul 04/26/16 05:49 Nucleated RBC % 0 04/26/16 05:49 INR (Anticoag Therapy) 0.85 (0.89-1.11) L 04/24/16 18:00 APTT 22.5 seconds (26.0-36.3) L 04/24/16 18:00 Sodium 138 mmol/L (133-145) 04/26/16 05:49 Potassium 3.5 mmol/L (3.5-5.0) 04/26/16 05:49 Chloride 108 mmol/L (101-111) 04/26/16 05:49 Carbon Dioxide 26 mmol/L (22-32) 04/26/16 05:49 Anion Gap 4 mmol/L (2-11) 04/26/16 05:49 BUN 12 mg/dL (6-24) 04/26/16 05:49 Creatinine 0.72 mg/dL (0.51-0.95) 04/26/16 05:49 Est GFR ( Amer) 99.2 (>60) 04/26/16 05:49 Est GFR (Non-Af Amer) 77.2 (>60) 04/26/16 05:49 BUN/Creatinine Ratio 16.7 (8-20) 04/26/16 05:49 Glucose 89 mg/dL (70-100) 04/26/16 05:49 Lactic Acid 0.8 mmol/L (0.5-2.0) 04/25/16 08:31 Calcium 8.0 mg/dL (8.6-10.3) L 04/26/16 05:49 Magnesium 2.4 mg/dL (1.9-2.7) 04/24/16 18:00 Total Bilirubin 0.40 mg/dL (0.2-1.0) 04/24/16 18:00 AST 22 U/L (13-39) 04/24/16 18:00 ALT 21 U/L (7-52) 04/24/16 18:00 Alkaline Phosphatase 98 U/L (34-104) 04/24/16 18:00 Total Creatine Kinase 49 U/L (10-223) 04/24/16 18:00 CK-MB (CK-2) 1.4 ng/mL (0.6-6.3) 04/24/16 18:00 Troponin I 0.00 ng/mL (<0.04) 04/24/16 18:00 C-Reactive Protein 2.63 mg/L (< 5.00) 04/24/16 18:00 Total Protein 7.3 g/dL (6.4-8.9) 04/24/16 18:00 Albumin 4.2 g/dL (3.2-5.2) 04/24/16 18:00 Globulin 3.1 g/dL (2-4) 04/24/16 18:00 Albumin/Globulin Ratio 1.4 (1-3) 04/24/16 18:00 Lipase 15 U/L (11.0-82.0) 04/24/16 18:00 TSH 4.41 mcIU/mL (0.34-5.60) 04/24/16 18:00 Urine Color Yellow 04/25/16 13:40 Urine Appearance Cloudy 04/25/16 13:40 Urine pH 5.0 (5-9) 04/25/16 13:40 Ur Specific [place] 1.036 (1.010-1.030) H 04/25/16 13:40 Urine Protein Negative (Negative) 04/25/16 13:40 Urine Ketones Negative (Negative) 04/25/16 13:40 Urine Blood Negative (Negative) 04/25/16 13:40 Urine Nitrate Negative (Negative) 04/25/16 13:40 Urine Bilirubin Negative (Negative) 04/25/16 13:40 Urine Urobilinogen Negative (Negative) 04/25/16 13:40 Ur Leukocyte Esterase 1+ (Negative) H 04/25/16 13:40 Urine WBC (Auto) Trace(0-5/hpf) (Absent) 04/25/16 13:40 Urine RBC (Auto) Absent (Absent) 04/25/16 13:40 Ur Squamous Epith Cells Present (Absent) H 04/25/16 13:40 Urine Bacteria Absent (Absent) 04/25/16 13:40 Urine Glucose Negative (Negative) 04/25/16 13:40 Influenza A (Rapid) Negative (Negative) 04/24/16 20:43 Influenza B (Rapid) Negative (Negative) 04/24/16 20:43 AXR this morning reviewed--Continued improvement of small bowel pattern with air in colon Assessment: Presumed small bowel obstruction showing improvement. Decreased NGT output, benign abdominal exam and she had a small bowel movement. Labs are normal today. No fever. Plan: Will d/c NGT today and keep NPO for now Follow clinically--if N/V or recurrent symptoms will require re-imaging or laparoscopy Discussed with patient.
[2016-04-26] MEDS ORDERED: Ketorolac INJ* 15 MG/ML 1 ML VIAL IV PUSH ONE (14:20)
--- NOTE | 2016-04-26 14:23 | PN ---
Subjective Date of Service: 04/26/16 Interval History: Patient seen and examined at bedside. She reports having a bit of a headache. She is eager to have her NGT removed. She states she has been passing flatus and has had a small BM. She denies fever/chills, CP, SOB, abd pain, n/v. Family History: Unchanged from Admission Social History: Unchanged from Admission Past Medical History: Unchanged from Admission Objective Active Medications: Acetaminophen (Tylenol Supp*) 650 mg [place] Q6H PRN PRN Reason: FEVER/PAIN Heparin Sodium (Porcine) (Heparin Vial(*)) 5,000 units SUBCUT Q8HR [facility] Last Admin: 04/26/16 06:06 Dose: 5,000 units Hydralazine HCl (Apresoline Iv*) 10 mg IV Q4H PRN PRN Reason: Systolic >160 Hydromorphone HCl (Dilaudid Iv*) 0.5 mg IV Q2H PRN PRN Reason: PAIN Last Admin: 04/24/16 23:30 Dose: 0.5 mg Sodium Chloride (Ns 0.9% 1000 Ml*) 1,000 mls @ 100 mls/hr IV PER RATE [facility] Last Admin: 04/26/16 04:32 Dose: 100 mls/hr Ketorolac Tromethamine (Toradol Inj*) 15 mg IV PUSH ONCE ONE Stop: 04/26/16 14:21 Lorazepam (Ativan Inj*) 0.5 mg IV BEDTIME PRN PRN Reason: SLEEP Ondansetron HCl (Zofran Inj*) 4 mg IV Q6H PRN PRN Reason: NAUSEA Pantoprazole Sodium (Protonix Iv*) 40 mg IV DAILY [facility] Last Admin: 04/26/16 07:53 Dose: 40 mg Prochlorperazine Edisylate (Compazine Inj*) 10 mg IV Q6H PRN PRN Reason: NAUSEA Last Admin: 04/24/16 23:30 Dose: 10 mg Vital Signs 04/25/16 04/25/16 04/25/16 15:28 19:49 20:00 Temperature 97.8 F 98.1 F Pulse Rate 81 84 Respiratory 20 16 16 Rate Blood Pressure 167/77 155/74 (mmHg) O2 Sat by Pulse 94 95 Oximetry 04/25/16 04/26/16 23:29 07:07 Temperature 98.5 F 98.1 F Pulse Rate 79 81 Respiratory 14 16 Rate Blood Pressure 133/66 139/67 (mmHg) O2 Sat by Pulse 96 98 Oximetry Oxygen Devices in Use Now: None Appearance: Older female patient, lying in bed, sleeping but easily arousable, in NAD Eyes: PERRLA Ears/Nose/Mouth/Throat: Clear Oropharnyx, Mucous Membranes Moist Neck: NL Appearance and Movements; NL JVP Respiratory: Symmetrical Chest Expansion and Respiratory Effort, Clear to Auscultation Cardiovascular: NL Sounds; No Murmurs; No JVD, RRR Abdominal: NL Sounds; No Tenderness; No Distention - BS present, mild diffuse tenderness Extremities: No Edema Skin: No Rash or Ulcers Neurological: Alert and Oriented x 3 Lines/Tubes/Other Access: Clean, Dry and Intact Peripheral IV Result Diagrams: 04/26/16 05:49 04/26/16 05:49 Additional Lab and Data: Lab Results 04/24/16 04/24/16 04/24/16 Range/Units 18:00 18:00 18:00 WBC 13.3 H (3.5-10.8) 10^3/ul RBC 4.68 (4.0-5.4) 10^6/ul Hgb 14.0 (12.0-16.0) g/dl Hct 42 (35-47) % MCV 90 (80-97) fL MCH 30 (27-31) pg MCHC 33 (31-36) g/dl RDW 15 (10.5-15) % Plt Count 283 (150-450) 10^3/ul MPV 10 (7.4-10.4) um3 Neut % (Auto) 74.6 (38-83) % Lymph % (Auto) 19.0 L (25-47) % [place] % (Auto) 4.8 (1-9) % Eos % (Auto) 1.0 (0-6) % Baso % (Auto) 0.6 (0-2) % Absolute Neuts (auto) 9.9 H (1.5-7.7) 10^3/ul Absolute Lymphs (auto) 2.5 (1.0-4.8) 10^3/ul Absolute Monos (auto) 0.6 (0-0.8) 10^3/ul Absolute Eos (auto) 0.1 (0-0.6) 10^3/ul Absolute Basos (auto) 0.1 (0-0.2) 10^3/ul Absolute Nucleated RBC 0.01 10^3/ul Nucleated RBC % 0 INR (Anticoag Therapy) 0.85 L (0.89-1.11) APTT 22.5 L (26.0-36.3) seconds Sodium 137 (133-145) mmol/L Potassium 3.9 (3.5-5.0) mmol/L Chloride 102 (101-111) mmol/L Carbon Dioxide 26 (22-32) mmol/L Anion Gap 9 (2-11) mmol/L BUN 19 (6-24) mg/dL Creatinine 1.04 H (0.51-0.95) mg/dL Est GFR ( Amer) 64.9 (>60) Est GFR (Non-Af Amer) 50.5 (>60) BUN/Creatinine Ratio 18.3 (8-20) Glucose 129 H (70-100) mg/dL Calcium 10.1 (8.6-10.3) mg/dL Magnesium 2.4 (1.9-2.7) mg/dL Total Bilirubin 0.40 (0.2-1.0) mg/dL AST 22 (13-39) U/L ALT 21 (7-52) U/L Alkaline Phosphatase 98 (34-104) U/L Total Creatine Kinase 49 (10-223) U/L CK-MB (CK-2) 1.4 (0.6-6.3) ng/mL Troponin I 0.00 (<0.04) ng/mL C-Reactive Protein 2.63 (< 5.00) mg/L Total Protein 7.3 (6.4-8.9) g/dL Albumin 4.2 (3.2-5.2) g/dL Globulin 3.1 (2-4) g/dL Albumin/Globulin Ratio 1.4 (1-3) Lipase 15 (11.0-82.0) U/L TSH 4.41 (0.34-5.60) mcIU/mL Influenza A (Rapid) (Negative) Influenza B (Rapid) (Negative) 04/24/16 Range/Units 20:43 WBC (3.5-10.8) 10^3/ul RBC (4.0-5.4) 10^6/ul Hgb (12.0-16.0) g/dl Hct (35-47) % MCV (80-97) fL MCH (27-31) pg MCHC (31-36) g/dl RDW (10.5-15) % Plt Count (150-450) 10^3/ul MPV (7.4-10.4) um3 Neut % (Auto) (38-83) % Lymph % (Auto) (25-47) % [place] % (Auto) (1-9) % Eos % (Auto) (0-6) % Baso % (Auto) (0-2) % Absolute Neuts (auto) (1.5-7.7) 10^3/ul Absolute Lymphs (auto) (1.0-4.8) 10^3/ul Absolute Monos (auto) (0-0.8) 10^3/ul Absolute Eos (auto) (0-0.6) 10^3/ul Absolute Basos (auto) (0-0.2) 10^3/ul Absolute Nucleated RBC 10^3/ul Nucleated RBC % INR (Anticoag Therapy) (0.89-1.11) APTT (26.0-36.3) seconds Sodium (133-145) mmol/L Potassium (3.5-5.0) mmol/L Chloride (101-111) mmol/L Carbon Dioxide (22-32) mmol/L Anion Gap (2-11) mmol/L BUN (6-24) mg/dL Creatinine (0.51-0.95) mg/dL Est GFR ( Amer) (>60) Est GFR (Non-Af Amer) (>60) BUN/Creatinine Ratio (8-20) Glucose (70-100) mg/dL Calcium (8.6-10.3) mg/dL Magnesium (1.9-2.7) mg/dL Total Bilirubin (0.2-1.0) mg/dL AST (13-39) U/L ALT (7-52) U/L Alkaline Phosphatase (34-104) U/L Total Creatine Kinase (10-223) U/L CK-MB (CK-2) (0.6-6.3) ng/mL Troponin I (<0.04) ng/mL C-Reactive Protein (< 5.00) mg/L Total Protein (6.4-8.9) g/dL Albumin (3.2-5.2) g/dL Globulin (2-4) g/dL Albumin/Globulin Ratio (1-3) Lipase (11.0-82.0) U/L TSH (0.34-5.60) mcIU/mL Influenza A (Rapid) Negative (Negative) Influenza B (Rapid) Negative (Negative) Assess/Plan/Problems-Billing Assessment: Ms. Rice is an 85 yo female with a PMH of bilateral subdural hematoma s/p debi holes in 2011, LLE DVT (2011), CAD, HTN, HLD, and GERD who presented to the ED on 04/24/16 with abd pain and n/v that is secondary to SBO. - Patient Problems (1) Small bowel obstruction Code(s): K56.69 - OTHER INTESTINAL OBSTRUCTION Comment: Appreciate surgery consult. Abdomen KUB this AM shows improving small bowel obstruction pattern. Patient passing flatus, has had small BM D/c NGT NPO except ice chips Continue IVF, prn analgesia, and prn anti-emetics. (2) CAD (coronary artery disease) Code(s): I25.10 - ATHSCL HEART DISEASE OF [place] CORONARY ARTERY W/O ANG PCTRS Comment: Resume home ASA when taking PO. Patient has a history of angioplasty x 2. (3) HTN (hypertension) Code(s): I10 - ESSENTIAL (PRIMARY) HYPERTENSION Comment: SBP 130s-150s. Continue PRN hydralazine while NPO. Resume diltiazem CD when taking PO. (4) HLD (hyperlipidemia) Code(s): E78.5 - HYPERLIPIDEMIA, UNSPECIFIED Comment: Resume ezetimibe when taking PO. (5) GERD (gastroesophageal reflux disease) Code(s): K21.9 - GASTRO-ESOPHAGEAL REFLUX DISEASE WITHOUT ESOPHAGITIS Comment : Continue IV pantoprazole. Resume PO omeprazole when taking PO. (6) History of subdural hematoma Code(s): Z86.79 - PERSONAL HISTORY OF OTHER DISEASES OF THE CIRCULATORY SYSTEM Comment: Occurred after fall, while on warfarin, in 2011, s/p debi holes. Not an acute issue. (7) History of DVT of lower extremity Code(s): Z86.718 - PERSONAL HISTORY OF OTHER VENOUS THROMBOSIS AND EMBOLISM Comment: LLE DVT in 2012, not currently on anticoagulation. Continue SQ heparin and SCDs. (8) DVT prophylaxis Comment: SCDs and SQ heparin Status and Disposition: Inpatient admission. Anticipate LOS >2 days.
[2016-04-27] MEDS: NS 0.9% 1000 ML* 1,000 ML IV SCH (04:24)
[2016-04-27] MEDS: Heparin VIAL(*) 5000 UNITS/ML VIAL (FIVE THOUSAND) SUBCUT SCH ×2 (07:16→14:06)
--- NOTE | 2016-04-27 08:28 | PN ---
Subjective Date of Service: 04/27/16 Interval History: Patient seen and examined at bedside. Pt states that she is feeling much better today. She reports moving her bowels twice yesterday and passing a small amount of flatus. Denies fever, chills, shortness of breath, chest discomfort, abdominal pain, N/V/D. Pt would like to try and advance her diet this morning. Family History: Unchanged from Admission Social History: Unchanged from Admission Past Medical History: Unchanged from Admission Objective Active Medications: Acetaminophen (Tylenol Supp*) 650 mg CO Q6H PRN Reason: FEVER/PAIN Heparin Sodium (Porcine) (Heparin Vial(*)) 5,000 units SUBCUT Q8HR IRAM Hydralazine HCl (Apresoline Iv*) 10 mg IV Q4H PRN Reason: Systolic >160 Hydromorphone HCl (Dilaudid Iv*) 0.5 mg IV Q2H PRN Reason: PAIN Sodium Chloride (Ns 0.9% 1000 Ml*) 1,000 mls @ 100 mls/hr IV PER RATE IRAM Lorazepam (Ativan Inj*) 0.5 mg IV BEDTIME PRN Reason: SLEEP Ondansetron HCl (Zofran Inj*) 4 mg IV Q6H PRN Reason: NAUSEA Pantoprazole Sodium (Protonix Iv*) 40 mg IV DAILY IRAM Prochlorperazine Edisylate (Compazine Inj*) 10 mg IV Q6H PRN Reason: NAUSEA Vital Signs 04/26/16 04/26/16 04/26/16 16:00 19:39 23:37 Temperature 98.0 F 97.9 F Pulse Rate 73 72 Respiratory 16 16 16 Rate Blood Pressure 128/56 134/61 (mmHg) O2 Sat by Pulse 96 97 Oximetry 04/27/16 07:22 Temperature Pulse Rate 69 Respiratory 18 Rate Blood Pressure 202/83 (mmHg) O2 Sat by Pulse 96 Oximetry Oxygen Devices in Use Now: None Appearance: NAD, laying in bed. Eyes: No Scleral Icterus, PERRLA Ears/Nose/Mouth/Throat: NL Teeth, Lips, Gums, Mucous Membranes Moist Neck: NL Appearance and Movements; NL JVP, Trachea Midline Respiratory: Symmetrical Chest Expansion and Respiratory Effort, Clear to Auscultation Cardiovascular: NL Sounds; No Murmurs; No JVD, RRR Abdominal: NL Sounds; No Tenderness; No Distention - Bowel sounds present. Extremities: No Edema Skin: No Rash or Ulcers Neurological: Alert and Oriented x 3, NL Muscle Strength and Tone Lines/Tubes/Other Access: Clean, Dry and Intact Peripheral IV - site benign. Nutrition: Taking PO's Result Diagrams: 04/26/16 05:49 04/26/16 05:49 Additional Lab and Data: Microbiology and Other Data: Microbiology 04/25/16 13:40 Urine Culture - Final Urine Aerococcus Species Normal Amanda Assess/Plan/Problems-Billing Assessment: Ms. Rice is an 85 yo female with a PMH of bilateral subdural hematoma s/p debi holes in 2011, LLE DVT (2011), CAD, HTN, HLD, and GERD who presented to the ED on 04/24/16 with abd pain and n/v that is secondary to a SBO. - Patient Problems (1) Small bowel obstruction Code(s): K56.69 - OTHER INTESTINAL OBSTRUCTION SNOMED Code(s): 780394120 Comment: - Appreciate surgery consult. Abdomen KUB yesterday AM shows improving small bowel obstruction pattern. Patient passing flatus, has had 2 BMs. - Continue IVF, prn analgesia, and prn anti-emetics. - Will advance diet to clear liquids. (2) CAD (coronary artery disease) Code(s): I25.10 - ATHSCL HEART DISEASE OF [place] CORONARY ARTERY W/O ANG PCTRS SNOMED Code(s): 30089769 Comment: - Patient has a history of angioplasty x 2. - Resume home ASA when taking PO. (3) HTN (hypertension) Code(s): I10 - ESSENTIAL (PRIMARY) HYPERTENSION SNOMED Code(s): 34288141 Comment: - SBP 130s-150s yesterday. SBP 200's this AM. - Continue PRN hydralazine. - Will resume diltiazem CD this AM. (4) HLD (hyperlipidemia) Code(s): E78.5 - HYPERLIPIDEMIA, UNSPECIFIED SNOMED Code(s): 50581372 Comment: - Resume ezetimibe when taking PO. (5) GERD (gastroesophageal reflux disease) Code(s): K21.9 - GASTRO-ESOPHAGEAL REFLUX DISEASE WITHOUT ESOPHAGITIS SNOMED Code(s): 124133038 Comment: - Continue IV pantoprazole. - Resume PO omeprazole when taking PO. (6) History of DVT of lower extremity Code(s): Z86.718 - PERSONAL HISTORY OF OTHER VENOUS THROMBOSIS AND EMBOLISM SNOMED Code(s): 730575360 Comment: - LLE DVT in 2011, not currently on anticoagulation. - Continue SQ heparin and SCDs. (7) History of subdural hematoma Code(s): Z86.79 - PERSONAL HISTORY OF OTHER DISEASES OF THE CIRCULATORY SYSTEM SNOMED Code(s): 590566397 Comment: - Occurred after fall, while on warfarin, in 2011, s/p debi holes. - Not an acute issue. (8) DVT prophylaxis Code(s): YGG6898 - SNOMED Code(s): 909590235 Comment: Continue SCDs and SQ heparin (9) Full code status Code(s): Z78.9 - OTHER SPECIFIED HEALTH STATUS SNOMED Code(s): 698319062 Status and Disposition: Inpatient admission. Anticipate LOS >2 days. Possible discharge to home this evening or in the AM.
[2016-04-27] MEDS: Pantoprazole IV* 40 MG IV SCH (08:33)
[2016-04-27] MEDS ORDERED: Diltiazem CD CAP* 180 MG PO SCH (09:00)
[2016-04-27] MEDS ORDERED: NS 0.9% 1000 ML* 1,000 ML IV SCH (11:42)
[2016-04-27 16:54] VITALS: BP 126/65
--- NOTE | 2016-04-28 12:10 | DS ---
DISCHARGE SUMMARY: DATE OF ADMISSION: 04/24/16 DATE OF DISCHARGE: 04/27/16 ATTENDING PHYSICIAN: Dr. Ruthy Washington * (dictated by Karla Dickson NP). PRIMARY CARE PROVIDER: Dr. Aroldo Gomez. PRIMARY DIAGNOSIS: Small bowel obstruction. SECONDARY DIAGNOSES: 1. History of bilateral subdural hematoma. 2. History of left lower extremity deep vein thrombosis. 3. History of coronary artery disease. 4. Hypertension. 5. Hyperlipidemia. 6. Gastroesophageal reflux disease. CONSULTATIONS WHILE IN THE HOSPITAL: Dr. Keegan Dupree with General Surgery. STUDIES WHILE IN THE HOSPITAL: 1. Abdomen and pelvis CT on 04/24/16. Radiologist's impression: Findings consistent with small bowel obstruction with a zone of transition in the left lower quadrant. Lithiasis without biliary duct dilatation, though density lesion in the left lobe of liver may represent a small hemangioma. 2. Abdominal x-ray on 04/25/16. Radiologist's impression: Persistent, but improving small bowel obstructive pattern. 3. Abdominal x-ray on 04/26/16. Radiologist's impression: Nonspecific bowel gas pattern with further decrease in the caliber of the small bowel. DISCHARGE MEDICATIONS: Continued home medications: 1. Omeprazole 40 mg oral daily. 2. Aspirin 81 mg oral daily. 3. Levocetirizine 5 mg oral daily. 4. Diltiazem CD 180 mg oral daily. 5. Zetia 10 mg oral daily. HISTORY OF PRESENT ILLNESS/ HOSPITAL COURSE: Ms. Rice is an 85-year-old female with past medical history significant for hypertension, hyperlipidemia, GERD, and coronary artery disease, who presented to the emergency room with complaints of abdominal pain and bloating associated with intractable nausea and vomiting. The patient's symptoms worsened and became severe enough that she decided to present to the emergency room for further evaluation. While in the emergency room, the patient had a CT scan of her abdomen showing findings consistent with a small bowel obstruction with a zone of transition in the left lower quadrant. The patient has no history of abdominal surgery. The patient was evaluated while in the emergency room by Dr. Dupree. The patient had an NG tube placed to low wall suction. Hospitalists were asked to evaluate the patient for admission. While in the hospital, the patient was followed by General Surgery. The patient also had repeat abdominal x-ray showing improvement in her bowel obstruction. The patient was eventually able to be advanced to a clear liquid diet and then a full liquid diet and then a soft diet. The patient was feeling well, was passing flatus, and had 2 bowel movements. The patient was anxious to go home and was feeling well. The patient's leukocytosis resolved. Her creatinine returned to a normal level from 1.04 to 0.72 on the day prior to discharge. Ms. Rice is stable for discharge to home today. Vital signs are as follows; temperature is 98.5, heart rate 78, respiratory 16, oxygen sat 99% on room air, blood pressure 126/65. DISCHARGE PLAN: Ms. Rice will be discharged to home. Activity will be as tolerated. She should be on a light soft diet for the next few days. Once she is feeling better, she may advance to a low fiber diet, which she should continue for the next 10 to 14 days, at which time the patient may return to her regular diet. The patient's regular medications have been resumed. The patient has been asked to call her primary care provider and setup an appointment with Dr. Gomez for next week. She has been asked to return to the emergency room for return of abdominal pain, shortness of breath, or chest discomfort. This is the summarized report of a complex medical history and hospital stay. For further details, please see the entire medical record. TIME SPENT: Time for this discharge was 50 minutes and 25 minutes were spent face- to-face with the patient discussing discharge plan and instructions. CONDITION ON DISCHARGE: Stable. Reviewed by JANES ROBERT 05/07/162031 CC: Dr. Gomez * [id number]/[facility] #: [id number] MTDSherry
== END 2016-04-27 18:25 | disposition home or self-care (01) | DRG 390 ==
LOC: ED 17:53 → MED 23:38
PROVIDERS: ADMIT Hospitalist; ATTEND Internal Medicine
PROC: 0D9670Z Drainage of Stomach with Drainage Device, Via Natural or Artificial Opening (ICD-10-PCS; principal; 2016-04-24)
DX: K56.69 Other intestinal obstruction (principal); I73.9 Peripheral vascular disease, unspecified; I10 Essential (primary) hypertension; E78.5 Hyperlipidemia, unspecified; K21.9 Gastro-esophageal reflux disease without esophagitis; I25.10 Atherosclerotic heart disease of native coronary artery without angina pectoris; E66.3 Overweight; E78.00 Pure hypercholesterolemia, unspecified; R51 Headache; D72.829 Elevated white blood cell count, unspecified; Z95.5 Presence of coronary angioplasty implant and graft; Z86.718 Personal history of other venous thrombosis and embolism; Z88.5 Allergy status to narcotic agent; Z88.7 Allergy status to serum and vaccine; Z87.891 Personal history of nicotine dependence; Z72.89 Other problems related to lifestyle; Z68.30 Body mass index [BMI] 30.0-30.9, adult; Z82.49 Family history of ischemic heart disease and other diseases of the circulatory system; Z86.79 Personal history of other diseases of the circulatory system; Z79.82 Long term (current) use of aspirin
CPT/HCPCS: 36415; 74020; 74177; 80048; 80053; 81003; 81015; 82550; 82553; 83605; 83690; 83735; 84443; 84484; 85025; 85610; 85730; 86140; 87077; 87086; 87502; A9270-GY; J0360; J0780; J1170; J1644; J1885; J2405; J2765; Q9967

== ENCOUNTER 2016-11-27 11:10 | Inpatient (IN) | payer MEDICARE, BC ==
[2016-11-27] MEDS ORDERED: NS 0.9% 1000 ML* 1,000 ML IV ONE (11:57)
[2016-11-27] MEDS ORDERED: Morphine INJ* 4 MG/ML 1 ML SYRINGE IV ONE (11:57)
[2016-11-27] MEDS ORDERED: Ondansetron INJ* 2 MG/ML VIAL IV ONE (11:57)
[2016-11-27] MEDS ORDERED: Heparin for STEMI(*) 5,000 UNITS/ML 1 ML VIAL IV ONE ×2 (12:16→12:26)
[2016-11-27] MEDS ORDERED: nitroGLYCERIN DRIP* 250 ML ONE ×2 (12:21→15:26)
[2016-11-27] MEDS ORDERED: fentaNYL* 50 MCG/ML 2 ML VIAL (100 MCG VIAL) ONE ×3 (12:21→15:16)
[2016-11-27] MEDS ORDERED: Heparin 2 UNITS/ML IVPREMIX* 3,000 ML IV ONE ×2 (12:21→14:34)
[2016-11-27] MEDS ORDERED: Midazolam* 1 MG/ML 5 ML VIAL (5 MG) ONE ×3 (12:21→15:16)
[2016-11-27] MEDS ORDERED: Iohexol 350 (CONTRAST) 200 ML MDV IV ONE ×3 (12:22→15:12)
[2016-11-27] MEDS ORDERED: Lidocaine 1% INJ* 10 MG/ML 30 ML SDV ONE ×2 (12:22→14:34)
[2016-11-27] MEDS ORDERED: Clopidogrel TAB* 300 MG ONE ×2 (12:34→12:35)
[2016-11-27] MEDS ORDERED: Al Hydrox/Mg Hydrox/Simet LIQ* 30 ML UDC ONE (12:35)
[2016-11-27 12:50] LABS: ALT 7 U/L (7-52); AST 11 U/L (13-39); Albumin 1.6 g/dL (3.2-5.2); Alkaline Phosphatase 35 U/L (34-104); BUN/Creatinine Ratio 35.7 (8-20); Blood Urea Nitrogen 10 mg/dL (6-24); Chloride 127 mmol/L (101-111); Creatine Kinase 62 U/L (10-223); EGFR African American 295.2 (>60); EGFR Non-African American 229.5 (>60); Globulin 1.4 g/dL (2-4); Glucose 58 mg/dL (70-100); Hematocrit 18 % (35-47); LDL Cholesterol Direct 47 mg/dL; Mean Corpuscular HGB Conc 32 g/dl (31-36); Mean Corpuscular Hemoglobin 30 pg (27-31); Mean Corpuscular Volume 93 fL (80-97); Mean Platelet Volume 9 um3 (7.4-10.4); Red Blood Count 1.94 10^6/ul (4.0-5.4); Red Cell Distribution Width 14 % (10.5-15); Sodium 142 mmol/L (133-145); Total Protein < 3.0 g/dL (6.4-8.9); White Blood Count 4.5 10^3/ul (3.5-10.8)
[2016-11-27 12:52] LABS: Add Diff/Slide Review? Slide Review Added; Comments Flag Yes; Hemoglobin 5.7 g/dl (12.0-16.0)
[2016-11-27] MEDS ORDERED: Ondansetron INJ* 2 MG/ML VIAL ONE (12:52)
[2016-11-27] MEDS ORDERED: Iohexol 300 (CONTRAST) 10 ML SDV ONE ×2 (12:53→13:14)
[2016-11-27 13:06] LABS: Troponin I 0.36 ng/mL (<0.04)
[2016-11-27 13:07] LABS: Anion Gap 4 mmol/L (2-11); Calcium < 4.0 mg/dL (8.6-10.3)
[2016-11-27 13:12] LABS: Hematocrit 36 % (35-47); Hemoglobin 11.7 g/dl (12.0-16.0); Mean Corpuscular HGB Conc 33 g/dl (31-36); Mean Corpuscular Hemoglobin 30 pg (27-31); Mean Corpuscular Volume 91 fL (80-97); Mean Platelet Volume 9 um3 (7.4-10.4); Red Blood Count 3.92 10^6/ul (4.0-5.4); Red Cell Distribution Width 14 % (10.5-15); White Blood Count 9.4 10^3/ul (3.5-10.8)
--- NOTE | 2016-11-27 13:16 | ED ---
Maverick Davis SooYoung, scribed for Roger De Anda MD on 11/27/16 at 1153 . HPI Chest Pain - HPI Summary HPI Summary: An 85 y/o F CITLALI presents to ED with c/o intermittent L-sided CP onset this AM. Pain radiates to back and LUE. Pert PMHx: HTN, NH approx 20 years ago. She states this pain feels different from prev NH. Associated sx: SOB, nausea, pedal edema and pain. EMS gave pt aspirin, one nitro. She states the nitro did not relieve the pain. Prev saw Dr. Yeh, cardiology. PCP is Dr. Gomez. No recent stress test or echo. Former smoker. - History of Current Complaint Time Seen by Provider: 11/27/16 11:46 Hx Obtained From: Patient, EMS Onset/Duration: Started Hours Ago - this AM, Atraumatic, Still Present Timing: Intermittent Current Severity: Severe Pain Intensity: 10 Pain Scale Used: 0-10 Numeric Chest Pain Location: Left Anterior, Left Lateral Chest Pain Radiates: Yes Chest Pain Radiates To:: Back, Arm - LUE Associated Signs and Symptoms: Positive: Shortness of Breath, Nausea, Calf Pain/ Swelling - Additional Pertinent History Primary Care Physician: [id number] - Allergy/Home Medications Allergies/Adverse Reactions: Allergies Allergy/AdvReac Type Severity Reaction Status Date / Time Influenza Vaccines Allergy Unknown Unknown Verified 11/27/16 11:53 Reaction Details Sulfa Antibiotics Allergy Nausea Verified 11/27/16 11:54 Codeine AdvReac Mild Nausea And Verified 11/27/16 11:53 Vomiting Home Medications: Home Medications Diltiazem HCl [Dilt-Xr] 180 mg PO DAILY 11/27/16 [History Confirmed 11/27/16] Fluticasone NASAL SPRAY 50MCG* [Flonase NASAL SPRAY 50MCG*] 2 spray BOTH NARES DAILY 11/27/16 [History Confirmed 11/27/16] Nitroglycerin TAB 0.4 MG* 0.4 mg SL Q5M PRN 11/27/16 [History Confirmed 11/27/16 ] Pravastatin (NF) [Pravachol (NF)] 40 mg PO DAILY 11/27/16 [History Confirmed ] PMH/Surg Hx/FS Hx/Imm Hx Previously Healthy: No Endocrine/Hematology History: Reports: Hx Anticoagulant Therapy - HX COUMADIN Cardiovascular History: Reports: Hx Coronary Artery Disease, Hx Deep Vein Thrombosis - RLE DVT 2011, Hx Hypercholesterolemia, Hx Hypertension, Hx Myocardial Infarction, Other Cardiovascular Problems/Disorders - CHRONIC LE EDEMA, BUT PT STATES NO LONGER ON DIURETIC GI History: Reports: Hx Gastroesophageal Reflux Disease Denies: Hx Gastrointestinal Bleed - NEW DX LOWER GI BLEED 12/29/12 Sensory History: Reports: Hx Contacts or Glasses Opthamlomology History: Reports: Hx Contacts or Glasses Neurological History: Reports: Other Neuro Impairments/Disorders - 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 PERCUTANIOUS TRANSLUMINAL CORONARY ANGIOPLASTY Infectious Disease History: Denies: Traveled Outside the [place] in Last 30 Days - Family History Known Family History: Positive: Cardiac Disease, Hypertension - Social History Occupation: Retired Lives: With Family Alcohol Use: Rare Hx Substance Use: No Substance Use Type: Reports: None Hx Tobacco Use: No Smoking Status (MU): Never Smoked Tobacco Review of Systems Positive: Chest Pain Positive: Shortness Of Breath Positive: Nausea Positive: Edema - pedal edema/pain All Other Systems Reviewed And Are Negative: Yes Physical Exam - Summary Physical Exam Summary: The patient is well-nourished, in mild distress and mild acute pain. The skin is warm and dry and pale with decreased skin turgor. HEENT: The head is normocephalic and atraumatic. The pupils are equal and reactive. The conjunctivae are clear and without drainage. Nares are patent and without drainage. Mouth reveals dry mucous membranes and the throat is without erythema and exudate. The external ears are intact. The ear canals are patent and without drainage. The tympanic membranes are intact. Neck is supple with full range of motion and non-tender. There are no carotid bruits. There is no neck vein distension. Respiratory: Chest is non-tender. Lungs are clear to auscultation and breath sounds are symmetrical and equal. Cardiovascular: Heart is regular rate and rhythm. There is no murmur or rub auscultated. There is no peripheral edema and pulses are symmetrical and equal. Abdomen: The abdomen is soft and non-tender. There are normal bowel sounds heard in all four quadrants and there is no organomegaly palpated. Musculoskeletal: There is no back pain noted. Extremities are non-tender with full range of motion. There is good capillary refill, 2 seconds. There is no peripheral edema or calf tenderness elicited. Neurological: Patient is alert and oriented to person, place and time. The patient has symmetrical motor strength in all four extremities. Cranial nerves are grossly intact. Deep tendon reflexes are symmetrical and equal in all four extremities. Psychiatric: The patient has an appropriate affect and does not exhibit any anxiety or depression. Triage Information Reviewed: Yes Vital Signs On Initial Exam: Initial Vitals Pulse Resp Pulse Ox 59 18 100 11/27/16 11:31 11/27/16 11:31 11/27/16 11:31 Vital Signs Reviewed: Yes Diagnostics - Vital Signs Vital Signs Temp Pulse Resp BP Pulse Ox 11/27/16 12:30 18 11/27/16 12:10 18 97 11/27/16 12:00 65 22 100 11/27/16 11:55 97.2 F 65 16 148/84 99 11/27/16 11:32 63 23 148/84 100 11/27/16 11:31 59 18 100 - Laboratory Lab Results: Lab Results 11/27/16 11/27/16 11/27/16 Range/Units 12:26 12:26 12:26 WBC 4.5 (3.5-10.8) 10^3/ul RBC 1.94 L (4.0-5.4) 10^6/ul Hgb 5.7 L* (12.0-16.0) g/dl Hct 18 L (35-47) % MCV 93 (80-97) fL MCH 30 (27-31) pg MCHC 32 (31-36) g/dl RDW 14 (10.5-15) % Plt Count 129 L (150-450) 10^3/ul MPV 9 (7.4-10.4) um3 Neut % (Auto) 56.2 (38-83) % Lymph % (Auto) 35.2 (25-47) % Ashley % (Auto) 6.4 (1-9) % Eos % (Auto) 1.8 (0-6) % Baso % (Auto) 0.4 (0-2) % Absolute Neuts (auto) 2.5 (1.5-7.7) 10^3/ul Absolute Lymphs (auto) 1.6 (1.0-4.8) 10^3/ul Absolute Monos (auto) 0.3 (0-0.8) 10^3/ul Absolute Eos (auto) 0.1 (0-0.6) 10^3/ul Absolute Basos (auto) 0 (0-0.2) 10^3/ul Absolute Nucleated RBC 0.01 10^3/ul Nucleated RBC % 0.2 INR (Anticoag Therapy) (0.89-1.11) APTT (26.0-36.3) seconds Sodium 142 (133-145) mmol/L Potassium (3.5-5.0) mmol/L Chloride 127 H (101-111) mmol/L Carbon Dioxide (22-32) mmol/L Anion Gap 4 (2-11) mmol/L BUN 10 (6-24) mg/dL Creatinine 0.28 L (0.51-0.95) mg/dL Est GFR ( Amer) 295.2 (>60) Est GFR (Non-Af Amer) 229.5 (>60) BUN/Creatinine Ratio 35.7 H (8-20) Glucose 58 L (70-100) mg/dL Lactic Acid 0.5 (0.5-2.0) mmol/L Calcium < 4.0 L* (8.6-10.3) mg/dL Total Bilirubin 0.10 L (0.2-1.0) mg/dL AST 11 L (13-39) U/L ALT 7 (7-52) U/L Alkaline Phosphatase 35 (34-104) U/L Total Creatine Kinase 62 (10-223) U/L CK-MB (CK-2) 6.5 H (0.6-6.3) ng/mL Myoglobin 25.5 (14.3-65.8) ng/mL Troponin I 0.36 H* (<0.04) ng/mL B-Natriuretic Peptide ( - 100) pg/mL Total Protein < 3.0 L (6.4-8.9) g/dL Albumin 1.6 L (3.2-5.2) g/dL Globulin 1.4 L (2-4) g/dL Albumin/Globulin Ratio 1.1 (1-3) LDL Cholesterol Direct 47 mg/dL Blood Type Antibody Screen 11/27/16 11/27/1611/27/17 Range/Units 12:26 12:26 12:26 WBC (3.5-10.8) 10^3/ul RBC (4.0-5.4) 10^6/ul Hgb (12.0-16.0) g/dl Hct (35-47) % MCV (80-97) fL MCH (27-31) pg MCHC (31-36) g/dl RDW (10.5-15) % Plt Count (150-450) 10^3/ul MPV (7.4-10.4) um3 Neut % (Auto) (38-83) % Lymph % (Auto) (25-47) % Ashley % (Auto) (1-9) % Eos % (Auto) (0-6) % Baso % (Auto) (0-2) % Absolute Neuts (auto) (1.5-7.7) 10^3/ul Absolute Lymphs (auto) (1.0-4.8) 10^3/ul Absolute Monos (auto) (0-0.8) 10^3/ul Absolute Eos (auto) (0-0.6) 10^3/ul Absolute Basos (auto) (0-0.2) 10^3/ul Absolute Nucleated RBC 10^3/ul Nucleated RBC % INR (Anticoag Therapy) 1.29 H (0.89-1.11) APTT 32.6 (26.0-36.3) seconds Sodium (133-145) mmol/L Potassium (3.5-5.0) mmol/L Chloride (101-111) mmol/L Carbon Dioxide (22-32) mmol/L Anion Gap (2-11) mmol/L BUN (6-24) mg/dL Creatinine (0.51-0.95) mg/dL Est GFR ( Amer) (>60) Est GFR (Non-Af Amer) (>60) BUN/Creatinine Ratio (8-20) Glucose (70-100) mg/dL Lactic Acid (0.5-2.0) mmol/L Calcium (8.6-10.3) mg/dL Total Bilirubin (0.2-1.0) mg/dL AST (13-39) U/L ALT (7-52) U/L Alkaline Phosphatase (34-104) U/L Total Creatine Kinase (10-223) U/L CK-MB (CK-2) (0.6-6.3) ng/mL Myoglobin (14.3-65.8) ng/mL Troponin I (<0.04) ng/mL B-Natriuretic Peptide 36 ( - 100) pg/mL Total Protein (6.4-8.9) g/dL Albumin (3.2-5.2) g/dL Globulin (2-4) g/dL Albumin/Globulin Ratio (1-3) LDL Cholesterol Direct mg/dL Blood Type A Positive Antibody Screen Negative Result Diagrams: 11/27/16 12:26 11/27/16 12:26 Lab Statement: Any lab studies that have been ordered have been reviewed, and results considered in the medical decision making process. - EKG 1201 EKG Rhythm: Sinus Rhythm EKG Interpretation: ST elevation v1, v2, consulted with Dr. Yeh, cardio, see consult note EKG Comparison: Other - new ST depressions in II, III, avf, v5, v6 since EKG on 01/04/15. Chest Pain Course/Dx - Course Course Of Treatment: Pt is an 85 y/o F BIBA presenting with intermittent L- sided CP onset this AM. Pain radiates to back and LUE. Pert PMHx: HTN, NH approx 20 years ago. She states this pain feels different from prev NH. Associated sx: SOB, nausea, pedal edema and pain. EMS gave pt aspirin, one nitro. She states the nitro did not relieve the pain. Prev saw Dr. Yeh, cardiology. PCP is Dr. Gomez. No recent stress test or echo. Former smoker. Pt given fluids, morphine, heparin, zofran in ED. Consulted with Dr. Yeh on EKG, who thinks it warrants a STEMI. See EKG read and consult note for more details. - Chest Pain Differential Diagnosis/HQI/PQRI: Acute NH, ACS, Angina, Chest Wall, Other: - anemia - Diagnoses Provider Diagnoses: STEMI (ST elevation myocardial infarction), Anemia During the Visit The Following Alert/Code Occurred: STEMI - 1216 - Provider Notifications Discussed Care Of Patient With: Katie Yeh - cardiology Time Discussed With Above Provider: 12:12 Instructed by Provider To: Other - Reviewing pt's EKG, concerned with ST changes in V1 and V2, and depression in lateral leads. EKG is different than pre -hospital EKG. Warrents STEMI. - Critical Care Time Critical Care Time: 30-74 min - 30 minutes Discharge - Discharge Plan Condition: Guarded Disposition: ADMITTED TO [facility] The documentation as recorded by the Maverick chowdary SooYoung accurately reflects the service I personally performed and the decisions made by me, Roger De Anda MD.
[2016-11-27] MEDS ORDERED: Nitroglycerin TAB 0.4 MG* 0.4 MG TAB SL PRN (13:29)
[2016-11-27] MEDS ORDERED: Acetaminophen TAB* 325 MG PO PRN (13:29)
[2016-11-27 13:30] LABS: Albumin 3.6 g/dL (3.2-5.2); BUN/Creatinine Ratio 23.8 (8-20); Calcium 8.6 mg/dL (8.6-10.3); EGFR African American 87.9 (>60); EGFR Non-African American 68.3 (>60); Globulin 2.4 g/dL (2-4); Potassium 3.5 mmol/L (3.5-5.0); Total Bilirubin 0.3 mg/dL (0.2-1.0)
[2016-11-27] MEDS ORDERED: NS 0.9% 1000 ML* 1,000 ML IV SCH (13:30)
[2016-11-27 13:46] LABS: Troponin I 0.86 ng/mL (<0.04)
[2016-11-27] MEDS ORDERED: Heparin(*) 1000 UNIT/ML 10 ML VIAL CATH LAB IV ONE ×2 (14:07→15:16)
[2016-11-27] MEDS: Ondansetron INJ* 2 MG/ML VIAL IV PRN (14:14)
--- NOTE | 2016-11-27 15:20 | RAD ---
HISTORY: Stroke. No other history is provided COMPARISONS: None TECHNIQUE: Multiple contiguous axial CT scans were obtained of the head without intravenous contrast. FINDINGS: HEMORRHAGE/INFARCT: There is no hemorrhage or acute infarct. MASSES/SHIFT: There is calcified extra-axial mass along the anterior falx. Elsewhere, there is no mass or shift. EXTRA-AXIAL SPACES: As noted above, there is calcified extra-axial mass of the right anterior falx, stable. SULCI AND VENTRICLES: The sulci and ventricles are normal in size and position for the patient's stated age. CEREBRUM: There are no focal parenchymal abnormalities. BRAINSTEM: There are no focal parenchymal abnormalities. CEREBELLUM: There are no focal parenchymal abnormalities. VESSELS: Contrast is noted within the vasculature PARANASAL SINUSES: The paranasal sinuses are clear. ORBITS: The orbits are unremarkable. BONES AND SOFT TISSUE: No bone or soft tissue abnormalities are noted. OTHER: None IMPRESSION: 1. 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 2. EVIDENCE OF RECENT CONTRAST ADMINISTRATION. 3. NO ACUTE INTRACRANIAL PATHOLOGY. PRELIMINARY FINDINGS WERE DISCUSSED WITH DR. ZAMBRANO AT APPROXIMATELY 3:16 PM ON NOVEMBER 27, 2016.
[2016-11-27] MEDS ORDERED: Eptifibatide (*) 100 ML ONE (15:22)
[2016-11-27] MEDS ORDERED: Eptifibatide IV (Load dose)(*) 2 MG/ML 10 ml VIAL ONE (15:22)
--- NOTE | 2016-11-27 15:32 | RAD ---
HISTORY: Left arm, back pain COMPARISONS: August 26, 2011 TECHNIQUE: Multiple contiguous axial CT scans of the chest were obtained without intravenous contrast. Coronal and sagittal multiplanar reformations are also submitted for review. FINDINGS: There is evidence of recent contrast demonstration. NECK AND THYROID: The lower neck and thyroid are unremarkable. CHEST WALL: There is no lower cervical, axillary, or supraclavicular lymphadenopathy by size criteria. HEART AND PERICARDIUM: The coronary stent is noted. AORTA AND PULMONARY VASCULATURE: There is calcification of the thoracic aorta. The pulmonary vasculature is unremarkable. MEDIASTINUM: There are calcified mediastinal lymph nodes. MARCOS: There is no hilar lymphadenopathy by size criteria. AIRWAY AND ESOPHAGUS: The airway is unremarkable, without endobronchial filling defect. The esophagus is grossly normal. LUNG PARENCHYMA: There is dependent atelectasis in the lung bases bilaterally. PLEURA: No pleural abnormalities are noted. UPPER ABDOMEN: The upper abdomen is unremarkable. BONES AND SOFT TISSUES: Mild degenerative changes are noted OTHER: None. IMPRESSION: NO ACUTE CT PATHOLOGY OF THE CHEST
[2016-11-27] MEDS ORDERED: Heparin 2 UNITS/ML IVPREMIX* 1,000 ML IV ONE (15:59)
[2016-11-27] MEDS: Atorvastatin* 80 MG TAB PO SCH ×2 (16:51→17:47)
[2016-11-27] MEDS: Metoprolol Tartrate TAB* 25 MG PO SCH ×2 (16:52→21:50)
[2016-11-27] MEDS: Captopril TAB* 12.5 MG PO SCH ×2 (16:55→20:58)
[2016-11-27 18:33] LABS: Albumin 3.6 g/dL (3.2-5.2); BUN/Creatinine Ratio 18.1 (8-20); Calcium 8.3 mg/dL (8.6-10.3); EGFR African American 84.2 (>60); EGFR Non-African American 65.5 (>60); Globulin 2.8 g/dL (2-4); Potassium 4.1 mmol/L (3.5-5.0); Total Bilirubin 0.3 mg/dL (0.2-1.0); Total Protein 6.4 g/dL (6.4-8.9)
[2016-11-27 18:37] LABS: Troponin I 20.78 ng/mL (<0.04)
[2016-11-27] MEDS ORDERED: Atropine SYRINGE* 0.1 MG/ML 10 ML SYRINGE (1 MG) ONE (19:43)
[2016-11-27] MEDS ORDERED: Nitro Patch/OINT Remove PATCH OFF SCH (21:00)
[2016-11-27] MEDS: traMADol TAB* 50 MG PO PRN (22:24)
--- NOTE | 2016-11-27 23:56 | CONS ---
NEUROLOGY CONSULTATION: DATE OF CONSULT: 11/27/16 REQUESTING PHYSICIAN: Idris Maurice MD REASON FOR CONSULT: Dacia hoko. HISTORY OF PRESENT ILLNESS: Lalitha Rice is an 85-year-old woman who presented to the emergency department several hours ago with intermittent left-sided chest pain with an onset this morning. The history is taken from review of her medical record as well as discussion with Dr. Maurice. She was found to have ST elevations on her EKG and was taken to the shop laborer by Dr. Maurice. He placed a stent in her LAD and then she was taken to the ICU. She subsequently complained again of chest pain and pain radiating into her left arm, into her back and there was concern for in-stent thrombosis. She had received clopidogrel as well as 6000 units of heparin. She began to demonstrate lethargy and the cardiac team thought that she had left-sided weakness and so dacia hook was called. On my arrival to the shop laborer, her blood pressure was 83/50 with a heart rate in the 50s. She spoke softly and seemed generally weak, but a bit more so in the left extremities and so, she was brought urgently to CT to evaluate for any signs of hemorrhage given the planned recatheterization and administration of antiplatelet and anticoagulant agents that were planned. PAST MEDICAL HISTORY: 1. Hypertension. 2. Myocardial infarction approximately 20 years ago. 3. GERD. 4. Seasonal allergies. 5. Hypercholesterolemia. 6. Traumatic subdural hematoma in November of 2011. PAST SURGICAL HISTORY: 1. Omar hole for subdural hematoma drainage. 2. Coronary angioplasty. ALLERGIES: Include: 1. FLU VACCINE. 2. SULFA ANTIBIOTICS cause nausea. 3. CODEINE causes nausea and vomiting. FAMILY HISTORY: Positive for cardiac disease and hypertension. SOCIAL HISTORY: She lives with family. She is not a smoker and drinks alcohol rarely. REVIEW OF SYSTEMS: Not obtainable at this time. PHYSICAL EXAM: Vital Signs: Temperature 97. Blood pressure as mentioned at approximately 1445 was 83/50 with a heart rate of 50s. Once she was back from CT scan, her blood pressure increased to 135/80s. Oxygen saturation was 95% on room air. On general examination initially, she was somnolent, but aroused easily to voice. She spoke softly, but was understandable without any obvious dysarthria. She was able to state her age as well as the month. She was able to follow commands. She initially scored an 11 on the NIH stroke scale earning 1 point for mental status changes primarily in her level of awareness, 2 points in each arm and 3 points in each leg. I did think that her left arm seemed to be weaker than her right arm, but she was not able to sustain either arm for 10 seconds off the bed. She did not have any obvious facial asymmetry. Her gaze was midline and versions were full. She did not have any obvious field cut. She was unable to raise her right leg secondary to the groin sheath. She was unable to elevate her left leg off the table. She responded briskly to pain in all 4 extremities. [id number] was without any obvious ataxia. After the CT scan when the patient's blood pressure was in the 130s/80s, she was very briskly responsive and she had no focal weakness nor sensory loss evident. DIAGNOSTIC STUDIES/LAB DATA: A noncontrast brain CT was obtained and personally reviewed and showed no evidence for intracranial hemorrhage. There is a calcified meningioma on the left anterior falx. She also underwent a noncontrast CT of the chest, which showed no acute pathology. Laboratory data showed that her PTT at 1255 was 212 and INR was 1.28. Chemistry panel showed sodium of 133, CO2 of 21, BUN to creatinine ratio of 23.8 , glucose of 126, and troponin of 0.86 at 1255 up from 0.36 at 12:26. CBC was largely unremarkable. IMPRESSION: Lalitha Rice is an 85-year-old woman who presented today with an ST elevation myocardial infarction and went to the shop laborer for stenting. She subsequently developed cardiac symptoms again and while being prepped for angiogram in the shop laborer, developed diminished responsiveness and generalized weakness, which seemed worse on the left. I think this was all related to hypoperfusion in the setting of hypotension and bradycardia. When her blood pressure came up to a more normal range, she perked up and had no evidence of focal deficits. She is not a TPA candidate secondary to her elevated PTT as well as the fact that the most likely etiology for her apparent deficit is not stroke. Thank you for this consultation. [id number]/[facility] #: [id number] LIAM
--- NOTE | 2016-11-27 23:56 | HP ---
CC: Dr. Gomez * ADMISSION HISTORY AND PHYSICAL: DATE OF ADMISSION: 11/27/16 CHIEF COMPLAINT: The patient with severe chest, back, and bilateral arm discomfort with nauseousness and shortness of breath with EKG repeated in the emergency room suggesting ST-segment elevation anterior wall myocardial infarction. HISTORY OF PRESENT ILLNESS: The patient is an 85-year-old female with prior known history of coronary artery disease with a remote myocardial infarction back in reportedly in the , when she had balloon angioplasty in [facility] to the right coronary artery for an acute inferior wall myocardial infarction. She has not had any significant cardiac issues since that time. She stated that she had developed on and off chest, back and arm discomfort throughout the course of today and without it relenting, was brought in by ambulance to the emergency room. Initial EKG from the ambulance, which is not available to me, showed inferior ST-segment depressions with no anterior ST elevations. The repeat EKG; however, demonstrated acute ST-segment elevation in V1 and V2 developing and as such, a STEMI alert was called. She was still having ongoing symptoms at the time that I saw her and was very anxious at best, she was short of breath with back discomfort as well as bilateral arm discomfort, and chest discomfort. She was mildly short of breath. The risk and benefits of cardiac catheterization were explained and she understood them and wished to proceed for urgent potential intervention. She was given 4000 units of heparin bolus. She had already received aspirin. Because of a prior history of an intracranial subdural bleed, she was going to get clopidogrel in the poultry farm laborer. PAST MEDICAL HISTORY: Includes: 1. The remote history of myocardial infarction with intervention. 2. History of DVT in 2011. 3. She had a lower GI bleed reportedly in 2012 with no bleeding since. 4. She had a subdural hematoma due to trauma in November 2011 with evacuation. 5. She has a history of carotid artery disease, she had bilateral carotid endarterectomies and last ultrasound done in 2014 showed only mild disease. Risk factors include her prior history of CAD plus hypertension, hyperlipidemia , family history of CAD. She has no smoking history. No diabetes. She does have carotid artery disease, status post bilateral carotid endarterectomies. MEDICATIONS: From home included: 1. Omeprazole 40 mg a day. 2. Diltiazem 180 mg a day. 3. Zetia 10 mg a day. 4. Pravastatin 40 mg a day. 5. Levocetirizine 5 mg a day. 6. Fluticasone nasal spray. REVIEW OF SYSTEMS: Pertinent to proceeding to the cardiovascular laboratory included the fact of her prior GI bleed some 3 years ago, but none since. No history of TIA or CVA, but the history of traumatic subdural hematoma. She had no history of hematemesis and no history of known kidney disease. PHYSICAL EXAMINATION VITAL SIGNS: Revealed blood pressure of 148/78 with a pulse of 63, respirations 18. HEENT: Conjunctivae pink. Sclerae clear. NECK: Supple with no increased JVP. Carotid had good upstroke and volume. I cannot appreciate any significant bruits or transmitted murmur. LUNGS: Revealed no accessory muscle usage. There was good excursion. Lungs were clear to A and P. HEART: Revealed no visible heaves. No palpable heaves or thrills. Normal S1 and S2. No S3 or S4 gallop. No significant systolic or diastolic murmur. ABDOMEN: Soft, nontender without organomegaly. EXTREMITIES: Without clubbing, cyanosis or fixed pitting edema. Peripheral pulses were deep in the femoral area, but present. MUSCULOSKELETAL: The patient moved all extremities appropriately. PSYCHOLOGICAL: The patient had appropriate anxious affect. LABORATORY DATA: Laboratory results are pending at this time. EKG showed sinus rhythm, heart rate 63, ST-segment elevation in V1 and V2, borderline in V3 with ST- segment reciprocal changes in II, III, aVF and V5 and V6. ASSESSMENT: Acute ST-segment elevation anterior wall myocardial infarction with reciprocal inferior wall changes. At this point in time, the patient has been given heparin, aspirin and we will give 600 mg clopidogrel in the catheterization laboratory. The risks and benefits were explained. She understood them and wishes to proceed as did her daughter understand them as well. Further management will be made in the cardiovascular laboratory. [id number]/[facility] #: [id number] LIAM
[2016-11-28 01:31] LABS: Troponin I 49.34 ng/mL (<0.04)
[2016-11-28] MEDS: Metoprolol Tartrate TAB* 25 MG PO SCH ×2 (05:55→14:04)
[2016-11-28 06:05] LABS: Hematocrit 31 % (35-47); Hemoglobin 10.1 g/dl (12.0-16.0); Mean Corpuscular HGB Conc 33 g/dl (31-36); Mean Corpuscular Hemoglobin 30 pg (27-31); Mean Corpuscular Volume 93 fL (80-97); Mean Platelet Volume 9 um3 (7.4-10.4); Red Blood Count 3.34 10^6/ul (4.0-5.4); Red Cell Distribution Width 15 % (10.5-15); White Blood Count 11.8 10^3/ul (3.5-10.8)
[2016-11-28 06:29] LABS: Albumin 3.1 g/dL (3.2-5.2); BUN/Creatinine Ratio 18.8 (8-20); Calcium 7.5 mg/dL (8.6-10.3); EGFR African American 87.9 (>60); EGFR Non-African American 68.3 (>60); Globulin 2.4 g/dL (2-4); HDL Cholesterol 34.6 mg/dL; Total Bilirubin 0.3 mg/dL (0.2-1.0); Total Protein 5.5 g/dL (6.4-8.9)
[2016-11-28 06:32] LABS: Potassium 4.1 mmol/L (3.5-5.0); Troponin I 27.92 ng/mL (<0.04)
[2016-11-28] MEDS: Pantoprazole TAB (NF) 40 MG TAB PO SCH (08:36)
[2016-11-28] MEDS: Aspirin Low Dose CHEW TAB* 81 MG PO SCH (08:36)
[2016-11-28] MEDS: Captopril TAB* 12.5 MG PO SCH (08:36)
[2016-11-28] MEDS: Clopidogrel TAB* 75 MG PO SCH (08:36)
[2016-11-28] MEDS ORDERED: Nitroglycerin 0.1 mg/Hr PATCH* (2.5 MG) TRANSDERM SCH ×2 (09:00)
--- NOTE | 2016-11-28 09:26 | ECHO ---
Patient: KIRSTEN WYNN [facility] Rec#: [id number] : 1930 Date: 11/28/2016 Age: 85y Height: 154.94 cm / 61.0 in Weight: 68.04 kg / 150.0 lbs Sex: F BSA: 1.67 Room#: ICU-3 Admit Date#: 11/27/2016 Type: Inpatient Referring: Idris Maurice MD Reading: Vida Ramires MD Furniture Upholsterer: Eulalia Ball RDCS CC: Aroldo Gomez MD Transthoracic Echocardiogram Indication: CAD/S/P PCI BP: 98/48 HR: 57 Rhythm: Bradycardia Findings History: Former smoker,CAD,DVT,HLD,HTN,carotid artery disease. Technical Comments: The study quality is good. Completed at 0831. Left Ventricle: Mild concentric left ventricular hypertrophy is observed. There is a focal wall motion abnormality present.anterior /septal wall hypokinesis. There is mild to moderately decreased left ventricular systolic function. The estimated ejection fraction is 35-40%. Abnormal left ventricular diastolic function is observed. Left Atrium: The left atrium is mildly dilated. Right Ventricle: The right ventricular cavity size is normal. The right ventricular global systolic function is normal. Right Atrium: The right atrium is mildly dilated. Aortic Valve: The aortic valve is trileaflet. There is no evidence of aortic regurgitation. There is no evidence of aortic stenosis. Mitral Valve: The mitral valve leaflets are mildly thickened. There is mild to moderate mitral regurgitation. There is no evidence of mitral stenosis. Tricuspid Valve: The tricuspid valve leaflets are normal. There is moderate tricuspid regurgitation.at least There is evidence of mild pulmonary hypertension. There is no tricuspid stenosis. Pulmonic Valve: The pulmonic valve appears normal. There is no evidence of pulmonic regurgitation. There is no pulmonic stenosis. Pericardium: A pericardial fat pad is visualized. Aorta: There is no dilatation of the ascending aorta. There is no dilatation of the aortic arch. There is no dilation of the aortic root. Pulmonary Artery: The main pulmonary artery appears normal. Venous: The inferior vena cava is dilated. There is a greater than 50% respiratory change in the inferior vena cava dimension. Summary: There was not any prior study for comparison. Conclusions Mild concentric left ventricular hypertrophy is observed. There is a focal wall motion abnormality present.anterior /septal wall hypokinesis. The estimated ejection fraction is 35-40%. Abnormal left ventricular diastolic function is observed. There is mild to moderate mitral regurgitation. There is moderate tricuspid regurgitation.at least There is evidence of mild pulmonary hypertension. Measurements Name Value Normal Range RVIDd (AP) 2D 2.2 cm (0.9 - 2.6) RVDdMajor (2D) 3 cm (2.2 - 4.4) RAd ISD 4CH 4 cm (3.4 - 4.9) RA (A4C)W 3.3 cm (2.9 - 4.6) IVSd (2D) 1.2 cm (0.6 - 1) LVPWd (2D) 1.3 cm (0.6 - 1) LVIDd (2D) 4.4 cm (3.6 - 5.4) LVIDs (2D) 3.6 cm - LV FS (2D) 16 % (25 - 45) Aortic Annulus 1.6 cm (1.4 - 2.6) Ao root diameter (2D) 2.7 cm (2.1 - 3.5) Ascending Ao 2.7 cm (2.1 - 3.4) Aortic arch 2.3 cm (1.8 - 3.4) Descending Ao 0.6 cm - LA dimension (AP) 2D 3.2 cm (2.3 - 3.8) LAd ISD 4CH 4.9 cm (2.9 - 5.3) LA ISD 4CH W 3.2 cm (2.5 - 4.5) Name Value Normal Range LA ESV SP 4CH (A/L) 37 ml - LA ESV SP 2CH (A/L) 36 ml - LA ESV BP (A/L) 37 ml - LA ESV BP (A/L) index 21.93 ml/m2 - LA ESV SP 4CH (MOD) 32 ml - LA ESV SP 2CH (MOD) 33 ml - Name Value Normal Range MV E-wave Vmax 0.8 m/sec - MV deceleration time 192 msec - MV A-wave Vmax 1 m/sec - MV E:A ratio 0.78 ratio - LV septal e' Vmax 0.05 m/sec - LV lateral e' Vmax 0.06 m/sec - LV E:e' septal ratio 16 ratio - LV E:e' lateral ratio 13.33 ratio - Name Value Normal Range AV Vmax 1.5 m/sec - AV VTI 30.5 cm - AV peak gradient 8.75 mmHg - AV mean gradient 3.42 mmHg - LVOT Vmax 1.3 m/sec - LVOT VTI 25.5 cm - LVOT peak gradient 6.27 mmHg - LVOT mean gradient 2.84 mmHg - Name Value Normal Range TR Vmax 2.8 m/sec - TR peak gradient 32 mmHg - RAP 8 mmHg - RVSP 40 mmHg - IVC diameter 2.3 cm - Name Value Normal Range PV Vmax 0.6 m/sec - PV peak gradient 1.26 mmHg -
--- NOTE | 2016-11-28 10:52 | RAD ---
HISTORY: Left arm and leg weakness COMPARISONS: January 27, 2017, September 11, 2012 TECHNIQUE: Multiple contiguous axial CT scans were obtained of the head without intravenous contrast. FINDINGS: HEMORRHAGE/INFARCT: There is no hemorrhage or acute infarct. MASSES/SHIFT: Again noted is an extra axial mass along the anterior falx. This is stable. There is no shift. EXTRA-AXIAL SPACES: As noted above, there is stable extra axial mass along the anterior falx. SULCI AND VENTRICLES: The sulci and ventricles are normal in size and position for the patient's stated age. Dilated. Vascular spaces are noted bilaterally. CEREBRUM: There are no focal parenchymal abnormalities. BRAINSTEM: There are no focal parenchymal abnormalities. CEREBELLUM: There are no focal parenchymal abnormalities. VESSELS: The vessels are grossly normal. PARANASAL SINUSES: The paranasal sinuses are clear. ORBITS: The orbits are unremarkable. BONES AND SOFT TISSUE: No bone or soft tissue abnormalities are noted. OTHER: None IMPRESSION: 1. NO ACUTE INTRACRANIAL PATHOLOGY. 2. PRELIMINARY FINDINGS WERE DISCUSSED WITH THE ICU PHYSICIAN AT APPROXIMATELY 10:48 AM ON NOVEMBER 28, 2016.
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
[2016-11-28] MEDS ORDERED: NS 0.9% 250 ML* 250 ML IV ONE ×3 (11:22→15:08)
[2016-11-28] MEDS ORDERED: NS 0.9% 1000 ML* 1,000 ML IV SCH ×2 (11:30→15:15)
[2016-11-28] MEDS ORDERED: Iodixanol* (CONTRAST) 320 MG/ML 100 ML SDV IV ONE (11:35)
[2016-11-28] MEDS: Fluticasone NASAL SPRAY 50MCG* 16 gm SPRAY BTL BOTH NARES SCH (11:42)
--- NOTE | 2016-11-28 12:18 | RAD ---
HISTORY: Left-sided weakness COMPARISONS: MR kirstin dated May 01, 2006 TECHNIQUE: Multiple contiguous axial CT scans were obtained of the head and neck After the administration of nonionic intravenous contrast timed to the systemic arterial phase of contrast enhancement. Coronal and sagittal multiplanar reformations are submitted for review. Multiple 3-D maximum intensity projection reconstructions are also submitted for review. FINDINGS: CTA NECK: AORTIC ARCH: There is a normal three-vessel branching pattern of the aortic arch. There is no ostial or proximal stenosis of the cephalic great vessels. There is atheromatous plaque of the descending thoracic aorta RIGHT VERTEBRAL ARTERY: The right vertebral artery is patent along its course, without stenosis. LEFT VERTEBRAL ARTERY: The left vertebral artery is patent along its course, without stenosis. DOMINANCE: The vertebral arteries are codominant. RIGHT COMMON CAROTID ARTERY: The right common carotid artery is patent. The right carotid bifurcation occurs at C4-C5 RIGHT INTERNAL CAROTID ARTERY: There is atheromatous disease of the right carotid bifurcation, without right internal carotid artery stenosis by NASCET criteria. RIGHT EXTERNAL CAROTID ARTERY: The right external carotid artery is unremarkable. LEFT COMMON CAROTID ARTERY: The left common carotid artery is patent. The left carotid bifurcation occurs at C4-C5 LEFT INTERNAL CAROTID ARTERY: There is atheromatous disease of the left carotid bifurcation, without left internal carotid artery stenosis by NASCET criteria. LEFT EXTERNAL CAROTID ARTERY: The left external carotid artery is unremarkable. VENOUS CIRCULATION: The venous system is unremarkable. SALIVARY GLANDS: The parotid glands, submandibular glands, sublingual glands are normal. NASAL CAVITY/NASOPHARYNX: The nasal cavity and nasopharynx are normal. ORAL CAVITY/OROPHARYNX: The oral cavity is obscured by streak artifact from dental amalgam. The visualized oral cavity and oropharynx are unremarkable. LARYNGEAL APPARATUS/HYPOPHARYNX: The laryngeal apparatus and hypopharynx are normal. UPPER AIRWAY/UPPER ESOPHAGUS: The visualized upper airway and esophagus are normal. LUNG APICES: The lung apices are clear. THYROID GLAND: The thyroid gland is normal. LYMPH NODES: There is no lymphadenopathy by size criteria. BONES AND SOFT TISSUES: No bone or soft tissue abnormalities are noted. CTA HEAD: INTRACRANIAL CIRCULATION: There is multifocal severe narrowing of the basilar artery at the mid third at the vertebrobasilar junction. Elsewhere, there is no aneurysm, vascular malformation, occlusion, or stenosis of the intracranial circulation The anterior communicating artery complex is clear. Bilateral posterior communicating arteries are identified. VENOUS CIRCULATION: The venous system is unremarkable. PERFUSION: There is no obvious parenchymal perfusion deficit. HEMORRHAGE/INFARCT: There is no hemorrhage or acute infarct. MASSES/SHIFT: Again noted is an extra axial mass along the anterior falx. There is no shift. EXTRA-AXIAL SPACES: As noted above, there is an extra axial mass along the anterior falx consistent. SULCI AND VENTRICLES: The sulci and ventricles are normal in size and position for the patient's stated age. CEREBRUM: There are no focal parenchymal abnormalities. Dilated perivascular spaces noted bilaterally. BRAINSTEM: There are no focal parenchymal abnormalities. CEREBELLUM: There are no focal parenchymal abnormalities. PARANASAL SINUSES: The paranasal sinuses are clear. ORBITS: The orbits are unremarkable. BONES AND SOFT TISSUE: There is post surgical change to the left frontal skull OTHER: There is no abnormal enhancement. IMPRESSION: 1. 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 2. NO INTERNAL CAROTID ARTERY STENOSIS BY NASCET CRITERIA. CPT II Codes: 3100F
--- NOTE | 2016-11-28 13:13 | CATH ---
CC: Dr. Aroldo Gomez * CARDIAC CATHETERIZATION REPORT: DATE OF PROCEDURE: 11/27/16 - ROOM #ICU-03 INDICATION FOR THE PROCEDURE: Patient with ST segment elevation anterior wall myocardial infarction with ongoing chest discomfort. PROCEDURE: Coronary arteriography, balloon angioplasty and placement of a 2.25 x 28 mm long Synergy drug-eluting stent in proximal to mid LAD, left heart catheterization, left ventriculography. PROCEDURE IN DETAIL: The patient was interviewed and examined in the emergency room where the risks and benefits were explained. She understood them and wished to proceed. She had already received 4000 units of heparin in the emergency room and aspirin by the EMS when they brought her in. She was brought to the cardiovascular laboratory where a formal time-out was performed. Patient received 600 mg of Plavix orally. Patient was prepped and draped in sterile fashion. Right coronary was anesthetized with 1% lidocaine. Right femoral artery was cannulated and a 6-Cymraes introducer was placed. Coronary arteriography was performed utilizing a 5-Cymraes 3.5 curve left coronary catheter and a 5-Cymraes 4 curve right coronary catheter. Decision was made to intervene into the totally occluded LAD. The patient's ACT was checked and found to be subtherapeutic. Additional 2000 of heparin was given. Guiding views were obtained utilizing a CLS 3 curve RunWay 6-Cymraes guide catheter. An exchange length All Star wire was advanced down the left anterior descending artery and balloon angioplasty was performed utilizing an Emerge 2.0 x 20 mm long balloon. Following this, a 2.25 x 28 mm long Synergy drug- eluting stent was deployed. The artery was then assessed both with wire in place and wire removed. Following this, central aortic pressure was recorded using an angled pigtail catheter advanced in the ascending aorta. The catheter was then passed across the aortic valve into the left ventricle where left ventricular pressure was recorded. Left ventriculography was performed utilizing a total of 24 cc of Omnipaque dye at a rate of 12 cc/sec. The catheter was pulled across the aortic valve to recheck gradient. At the end of the case, the catheter was removed and the sheath was sutured in place in preparation for removal in the intensive care unit when the ACT normalized. The total contrast used was 150 cc of Omnipaque dye. The radiation exposure included 9.4 minutes of fluoro time. The air kerma was 671 milligray. The DAP radiation was 4288 microgray/m2. RESULTS: HEMODYNAMIC DATA: Left heart catheterization revealed central aortic pressure recorded at 112/ 55 with mean of 80, left ventricular pressure 106 with left ventricular end diastolic pressure of 18. LEFT VENTRICULOGRAPHY: Performed in the ARMSTRONG projection revealed mild hypokinesis of the mid to distal anterior wall, overall ejection fraction fairly normal at 50%. CORONARY ARTERIOGRAPHY: A. Left coronary artery: 1. Left main: There was mild tapering in the distal left main with a 25 % to 30% narrowing seen. 2. Left anterior descending artery: The proximal portion of the left anterior descending artery was small in caliber with a 70% proximal lesion in the LAD itself followed by total occlusion after the first septal floodplain manager and the first diagonal branch. The first diagonal branch was a very thin thread like vessel with significant 85% mid stenosis seen. This vessel is too small for any type of intervention. 3. Circumflex artery - a nondominant vessel with very thin first, second , and third obtuse marginal branch with a slightly larger fourth obtuse marginal branch all vessels small in caliber. There was diffuse disease seen in the proximal portion with an area of 50% stenosis and distal portion had 50% to 55% narrowing just prior to the left obtuse marginal branch. B. Right coronary artery: Dominant vessel supplying multiple thin acute marginal branches with a larger size low lying acute marginal branch, which supply the mid- to-distal septal area and continuing on supplying another thin acute marginal branch and ending in a PDA. It should be noted that the acute marginal branch extended to the apical region and on to part of the distal anterior wall. INTERVENTION INTO MID LEFT ANTERIOR DESCENDING ARTERY: Balloon angioplasty and placement of a 2.25 x 28 mm long Synergy drug- eluting stent with residual stenosis of 0% RAYNA-3 flow seen. Of note - on reconstitution of this vessel, diffusely diseased distal vessel noted as well as a second diagonal branch with an ostial narrowing of 75% to 80%. This vessel was again too small caliber for any type of stent being able to be placed. OVERALL ASSESSMENT: Successful interruption of ST elevation anterior wall myocardial infarction with balloon angioplasty and placement of 2.25 x 28 mm long Synergy drug- eluting stent. At this point and time, dual antiplatelet therapy with aspirin and clopidogrel will be given, low-dose beta-sekou will be instituted, and AMRKIE inhibitor as tolerated. High dose statin therapy will be instituted. Of note, the patient in general as such diffuse vascular disease and small caliber vessels. Consideration for possible evaluation as needed for interventions of the right coronary artery could be made, however, I would attempt first aggressive medical management and see whether or not the patient is symptomatic on medical management. ADDENDUM: Patient brought back to cardiovascular laboratory emergently within an hour's time after the initial intervention with recurrent back discomfort and left arm discomfort. On arrival in the catheterization lab, she was lethargic and could not respond appropriately. As such a dacia hook was called for possible CVA. Dr. Dora Hayden saw the patient in consultation and recommended a CAT scan to rule out any bleed. She was brought to CAT scan with no bleed found and as such she was brought back to the cardiovascular laboratory. By the time she came back, she was much more awake and alert. She was bolused with heparin and received doule bolus integrelin and started on an integrelin drip.which was stopped once ACT was found to be > 300. Cardiac catheterization was performed, exchanging the existing femoral sheath for a new femoral sheath. Coronary arteriography of the left coronary artery utilizing a CLS3 curve 6 fr. guiding catheter revealed the presence of a totally occluded stent. An .014 interventional wire crossed the total occlusion. Thrombectomy was performed utilizing a Pronto thrombectomy device and high pressure balloon angioplasty was performed to the LAD stent to make of adherence to the artery wall utilizing 2.25 x 8 mm long Emerge noncompliant balloon. Following that the decision was made also to place a 2.25 x 8 mm long Synergy stent distal to the original stent with mild overlapping due to question of the haze area. After the stent was deployed, the high pressure balloon inflations were made. It should be noted that prior to any high balloon pressure inflations were performed, there was a small area of extravasation of contrast in the middle of the stented area in the LAD. This was watched over the course of the intervention and there was no significant progression to the area involved. The patient will be watched carefully in the intensive care unit and the sheath will be removed later on tonight. RESULTS OF RETURN TO DIRECTOR RADIO: Successful reconstitution of the left anterior descending artery with thrombectomy and balloon angioplasty and placement of a second stent distal to the first one with RAYNA-3 flow noted. A small area of extravasation of dye was noted, which was stable throughout the course of the catheterization which will be watched carefully over the course of the hospitalization. [id number]/[facility] #: [id number] LIAM
[2016-11-28] MEDS: Atorvastatin* 80 MG TAB PO SCH (16:21)
--- NOTE | 2016-11-28 18:33 | RAD ---
INDICATION: Brainstem ischemia. COMPARISON: Comparison is made with prior CTs of the brain from November 24, 2011 and November 28, 2016. TECHNIQUE: Sagittal T1, axial T1, T2, susceptibility, FLAIR and diffusion weighted images were obtained. FINDINGS: The ventricles, cisterns and sulci appear prominent consistent with age-related atrophy. There are focal areas of increased signal intensity on T2-weighted images present in the subcortical and periventricular white matter most consistent with moderate chronic small vessel ischemic changes. In addition there is an extra-axial mass present along the anterior falx measuring 2.1 x 1.6 cm in size which correlates with a calcified mass on the prior CT studies and is unchanged in size and most consistent with a calcified meningioma. No significant mass effect is seen. There is a small area of restricted diffusion present in the anterior aspect of the dinh on the right side measuring approximately 5 x 4 mm in size. There is also a punctate focus of restricted diffusion present within the medial aspect of the right cerebellar hemisphere. There is no evidence of hemorrhage. There is minimal mucosal thickening within the ethmoid air cells. The paranasal sinuses otherwise appear clear. There is a small effusion within the left mastoid air cells. IMPRESSION: 1. FINDINGS SUGGESTIVE OF SMALL INFARCTS WITHIN THE DINH AND RIGHT CEREBELLAR HEMISPHERE DESCRIBED. 2. MODERATE CHRONIC SMALL VESSEL ISCHEMIC CHANGES. 3. SMALL EXTRA-AXIAL MASS IN THE RIGHT FRONTAL LOBE MOST CONSISTENT WITH A CALCIFIED MENINGIOMA, UNCHANGED FROM PRIOR STUDIES.
--- NOTE | 2016-11-28 23:33 | PN ---
EXTENDED PROGRESS NOTE: DATE OF FOLLOWUP: 11/28/16 HISTORY: The patient did not have any acute overnight events but then around approximately 10 a.m. this morning, she developed recurrence of left greater than right-sided weakness and reported feeling very fatigued. This occurred in the setting of relative hypotension into the 90s systolic. Her initial NIH stroke scale was 5. A stat head CT as well as a CT angiogram was performed. A CT of the brain showed no evidence for hemorrhage and no changes from the previous day while the CT angiogram demonstrated multifocal areas of atherosclerosis and in particular, two short segments of the basilar artery with severe stenosis. I discussed this with Dr. Torres and he felt it was most likely consistent with soft plaque secondary to atherosclerosis. The patient was initially assessed at approximately 10:15 a.m. and then reassessed at approximately 2 p.m. with a much improved exam but still reports of fatigue. The patient also states that she has not slept much over the last 24 hours, however. She denies any recurrence of her chest pain or arm pain. She denies any episodes such as this previously except when she had her subdural hemorrhage on anticoagulation. IN-HOSPITAL MEDICATIONS: Include: 1. Aspirin 81 mg daily. 2. Lipitor 80 mg daily. 3. Plavix 75 mg daily. 4. Colace 100 mg daily. 5. Flonase. 6. Lopressor 12.5 mg q.8 hours. 7. Zofran 4 mg q.4 hours p.r.n. 8. Protonix 40 mg daily. 9. Normal saline 50 mL per hour. 10. Tramadol 50 mg q.6 hours p.r.n. PHYSICAL EXAM: Vital Signs: In general, her vital signs over yesterday afternoon and evening showed blood pressures ranging from the low 100s into the 130s systolic with diastolics generally in the 60s to 70s. She had a few spurious measurements of, for example 90/59 at 181, 97/58 at 2000 and 99/58 at 2034. After approximately 6 a.m.; however, her blood pressures more consistently trended downward into the high 90s/50s and it was around 10 a.m. when she began to be symptomatic, at which point her blood pressure was 94/59. With boluses of fluid, she was brought up into the one teens, but now this afternoon it is starting to drift down again into the 90s systolic. On initial examination at 10 a.m. this morning, she was in no acute distress but appeared somewhat fatigued. She had no dysarthria but she had mild left lower facial weakness. Her versions were full without nystagmus. [place] were intact. Her tongue was midline and the palate elevated symmetrically. On motor examination , she had pronator drift in the left arm and she was unable to maintain the arm antigravity for 10 seconds. In the left leg, she had drift of the leg but it did not hit the bed before 5 seconds. She endorsed diminished sensation to light touch in the left upper extremity and scored a 5 on the NIH stroke scale. On reevaluation this afternoon, she still reports feeling tired. Her arm strength seems to be fluctuating. On my exam, she still appeared to have slight left lower facial weakness. She had nearly full strength in the left upper extremity but there seemed to be delayed activation with raising it off the bed as well as a bit of delayed activation with hand peer health promoter on the left. Similarly, in the left leg she had a bit of delayed activation and more effort to raise the leg off the bed, but gave very good resistance proximally and more distally. DATA: This morning, her white blood cell count is 11.8. Hematocrit 31, hemoglobin 10.1, platelet count 219,000. Her CMP showed chloride of 113, glucose of 112, calcium of 7.5, AST of 93, ALT of 29. Her CK was 918 and CK-MB 141, troponin 27.92. Her cholesterol studies showed triglycerides 180, total cholesterol 164, LDL cholesterol 93, HDL 34.6. CT brain and CT angiogram of the head and neck were reviewed as specified in the HPI. IMPRESSION: Lalitha Rice is an 85-year-old woman, who underwent stenting x2 to the left anterior descending artery yesterday and has had 2 episodes of left- sided weakness associated with lethargy in the setting of hypotension. Her CT angiogram has shown 2 areas of severe narrowing short segments of the basilar artery, both proximally and in the mid third of the basilar. I think she is most likely experiencing hypoperfusion episodes secondary to her hypotension. She was considered for TPA, but given her history of nontraumatic subdural hemorrhage on anticoagulation as well as the recent angiogram with stenting and a question of whether there was slight extravasation of contrast after that procedure, in conjunction with her improvement spontaneously and her exam with supporting her blood pressure, the decision ultimately was not to give the patient TPA. I think most importantly because of her history of nontraumatic subdural hemorrhage on Coumadin, I think she would be a poor candidate for TPA if these symptoms were to recur. At this time, Dr. Kaur has discontinued her captopril and will either be reducing her dose of metoprolol versus discontinuing it as well to try and help support her blood pressure. She is also on fluids at 50 mL per hour. She is on dual-antiplatelet therapy with aspirin and Plavix, which should be continued both for cardiovascular reasons as well as in the setting of intracranial atherosclerosis. We are going to get MRI scan of the brain to help further determine whether she has had any actual brainstem ischemia secondary to these episodes. Recommended that she be kept flat as much as possible at this time and if she has recurrence of symptoms, then efforts are to be made to bring up her blood pressure with fluid boluses or otherwise. Dr. Kaur and I also discussed pressors but would worry about clamping down her vasculature further with use of pressors. [id number]/[facility] #: [id number] [facility]ALTH[facility]herry
[2016-11-29] MEDS: Aspirin Low Dose CHEW TAB* 81 MG PO SCH (08:03)
[2016-11-29] MEDS: Clopidogrel TAB* 75 MG PO SCH (08:03)
[2016-11-29] MEDS: Pantoprazole TAB (NF) 40 MG TAB PO SCH (08:04)
[2016-11-29] MEDS: Fluticasone NASAL SPRAY 50MCG* 16 gm SPRAY BTL BOTH NARES SCH (08:04)
[2016-11-29] MEDS: traMADol TAB* 50 MG PO PRN (08:10)
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
[2016-11-29 09:20] LABS: Hematocrit 34 % (35-47); Hemoglobin 11.2 g/dl (12.0-16.0); Mean Corpuscular HGB Conc 33 g/dl (31-36); Mean Corpuscular Hemoglobin 31 pg (27-31); Mean Corpuscular Volume 93 fL (80-97); Mean Platelet Volume 9 um3 (7.4-10.4); Red Blood Count 3.66 10^6/ul (4.0-5.4); Red Cell Distribution Width 15 % (10.5-15); White Blood Count 13.1 10^3/ul (3.5-10.8)
[2016-11-29 09:33] LABS: BUN/Creatinine Ratio 14.5 (8-20); Calcium 9.1 mg/dL (8.6-10.3); EGFR African American 93.2 (>60); EGFR Non-African American 72.5 (>60); Potassium 3.9 mmol/L (3.5-5.0)
[2016-11-29] MEDS ORDERED: Al Hydrox/Mg Hydrox/Simet LIQ* 30 ML UDC PO PRN (10:03)
[2016-11-29] MEDS: Atorvastatin* 80 MG TAB PO SCH (16:39)
--- NOTE | 2016-11-30 05:43 | PN ---
FOLLOWUP NOTE: DATE OF FOLLOWUP: 11/29/16 LOCATION: The patient is in ICU bed 3. HISTORY: No acute overnight events. Ms. Rice has had no recurrence of her weakness. She did undergo MRI yesterday. She indicates that she is tired, but also indicates that she enjoys sleeping. She has been ambulating around the ICU without difficulty. MEDICATIONS: Include: 1. Tylenol 650 mg. 2. Maalox. 3. Aspirin 81 mg daily. 4. Lipitor 80 mg daily. 5. Plavix 75 mg daily. 6. Colace 100 mg daily p.r.n. 7. Flonase. 8. Zofran p.r.n. 9. Protonix 40 mg daily. 10. Tramadol 50 mg q.6 p.r.n. pain. Her blood pressure medications are still being held. PHYSICAL EXAM: Vital Signs: Temperature 98.9, blood pressure 113/59, heart rate 74, oxygen saturation is 99% on room air. Overall, her blood pressures have certainly trended towards the higher range at times as high as 174/91. On examination, she is asleep, but awakens easily to voice. Her speech is fluent without dysarthria or aphasia. Gaze is midline. Versions are full without nystagmus. [place] are full to confrontation. Her face is essentially symmetric today with little if any detectable left facial weakness. Her extremities are full strength with no pronator drift. Sensation is intact to light touch in the upper and lower extremities. [id number] is intact with ataxia. DATA: Brain MRI was obtained and personally reviewed and showed some areas of ischemia in the right cerebellum as well as in the right alec. IMPRESSION: Lalitha Rice is an 85-year-old woman with cardiovascular disease who is here after angioplasty and stenting x2 and has experienced recurrent neurologic deficits in the setting of hypotension. CT angiogram has showed severe short segment stenosis of the basilar artery in both the proximal as well as the mid third of the basilar. MRI shows that she has had some ischemia in these areas and I think this is secondary to hypoperfusion in the setting of hypotension. As such, her blood pressure medications are being held to allow permissive hypertension at this time. Dr. Kaur has reviewed this with Cardiology as well. She should be continued on her dual antiplatelet therapy a well as her statin. [id number]/[facility] #: [id number] MTDD
[2016-11-30] MEDS: Docusate CAP* 100 MG PO PRN (06:34)
[2016-11-30] MEDS: Fluticasone NASAL SPRAY 50MCG* 16 gm SPRAY BTL BOTH NARES SCH (08:34)
[2016-11-30] MEDS: Pantoprazole TAB (NF) 40 MG TAB PO SCH (08:34)
[2016-11-30] MEDS: Aspirin Low Dose CHEW TAB* 81 MG PO SCH (08:34)
[2016-11-30] MEDS: Clopidogrel TAB* 75 MG PO SCH (08:34)
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
[2016-11-30] MEDS ORDERED: Metoprolol Tartrate TAB* 25 MG PO SCH (09:00)
--- NOTE | 2016-11-30 09:08 | PN ---
Subjective Date of Service: 11/30/16 - CC: orthopnea (SOB sleeping) Interval History: The patient has no CP. SOB sleeping, improved with O2. Feels fine now sitting up. No c/o walking to comode. Medications Active Medications: Acetaminophen (Tylenol Tab*) 650 mg PO Q4H PRN PRN Reason: HEADACHE/PAIN Al Hydrox/Mg Hydrox/Simethicone (Maalox Plus*) 30 ml PO Q4H PRN PRN Reason: UPSET STOMACH Aspirin (Aspirin Low Dose Tab*) 81 mg PO DAILY [facility] Last Admin: 11/30/16 08:34 Dose: 81 mg Atorvastatin Calcium (Lipitor*) 80 mg PO 1700 [facility] Last Admin: 11/29/16 16:39 Dose: 80 mg Clopidogrel Bisulfate (Plavix Tab*) 75 mg PO DAILY [facility] Last Admin: 11/30/16 08:34 Dose: 75 mg Docusate Sodium (Colace Cap*) 100 mg PO DAILY PRN PRN Reason: CONSTIPATION Last Admin: 11/30/16 06:34 Dose: 100 mg Fluticasone Propionate (Flonase Nasal [place] 50mcg*) 2 spray BOTH NARES DAILY [facility] Last Admin: 11/30/16 08:34 Dose: Not Given Metoprolol Tartrate (Lopressor Tab*) 12.5 mg PO Q12HR [facility] Ondansetron HCl (Zofran Inj*) 4 mg IV Q4H PRN PRN Reason: NAUSEA Last Admin: 11/27/16 14:14 Dose: 4 mg Pantoprazole Sodium (Protonix Tab (Nf)) 40 mg PO DAILY [facility] Last Admin: 11/30/16 08:34 Dose: 40 mg Tramadol HCl (Ultram*) 50 mg PO Q6H PRN PRN Reason: PAIN Last Admin: 11/29/16 08:10 Dose: 50 mg Objective Vital Signs: Temp Pulse Resp BP Pulse Ox 99.1 F 71 20 148/74 92 11/30/16 07:39 11/30/16 07:00 11/30/16 07:00 11/30/16 07:00 11/30/16 07:00 Oxygen Devices in Use Now: None Appearance: Elderly woman, seated, no distress. Eyes: No Scleral Icterus, PERRLA Ears/Nose/Mouth/Throat: Clear Oropharnyx, Mucous Membranes Moist Neck: Trachea Midline, No Thyroid Enlargement, Masses Respiratory: Symmetrical Chest Expansion and Respiratory Effort, Clear to Auscultation Cardiovascular: RRR - soft early peaking SM RUSB. Abdominal: NL Sounds; No Tenderness; No Distention Skin: No Rash or Ulcers Neurological: Alert and Oriented x 3 - no gross deficits sitting, formal exam not performed. Lines/Tubes/Other Access: Clean, Dry and Intact Peripheral IV Nutrition: Taking PO's Laboratory Results: 11/29/16 09:10 11/29/16 09:10 INR (Anticoag Therapy) 0.84 (0.89-1.11) L 11/28/16 11:35 APTT 23.5 seconds (26.0-36.3) L 11/28/16 11:35 Total Bilirubin 0.30 mg/dL (0.2-1.0) 11/28/16 05:50 AST 93 U/L (13-39) H 11/28/16 05:50 ALT 29 U/L (7-52) 11/28/16 05:50 Alkaline Phosphatase 68 U/L (34-104) 11/28/16 05:50 CK-MB (CK-2) 141.0 ng/mL (0.6-6.3) H 11/28/16 05:50 B-Natriuretic Peptide 36 pg/mL (-100) 11/27/16 12:26 Total Protein 5.5 g/dL (6.4-8.9) L 11/28/16 05:50 Albumin 3.1 g/dL (3.2-5.2) L 11/28/16 05:50 Globulin 2.4 g/dL (2-4) 11/28/16 05:50 Albumin/Globulin Ratio 1.3 (1-3) 11/28/16 05:50 Triglycerides 180 mg/dL 11/28/16 05:50 Cholesterol 164 mg/dL 11/28/16 05:50 LDL Cholesterol 93 mg/dL 11/28/16 05:50 HDL Cholesterol 34.6 mg/dL 11/28/16 05:50 11/27/16 11/27/16 11/28/16 12:55 18:03 01:00 Troponin I 0.86 H* 20.78 H* 49.34 H* 11/28/16 05:50 Troponin I 27.92 H* Diagnostic Imaging: Echo: 11/28/16: EF 35-40%, mild to mod MR, mod TR. EKG Data: Montior: NSR. Assessment/Plan 85 yo female 3 days s/p STEMI with PCI complicated by early stent thrombosis and 2 NETWORK PROJECT MANAGER ischemic events, MRI confirms small infarcts in alec and R cerebellum. Moderate CM. Improving. Points of Discussion: CAD: -continue BB, ASA, PLAVIX and high dose statin. CM: BP improved, recommend adding low dose ACEI unless felt to add risk of recurrent NETWORK PROJECT MANAGER ischemia due to drop in BP. Orthopnea: - ACEI may help - NTG patch HS and O2 may help, I recommend - no diuretics now, may lead to recurrent hypotension. I agree the pt is ready to go to telemetry floor and advance activity.
[2016-11-30] MEDS: Metoprolol Tartrate TAB* 25 MG PO SCH ×2 (10:10→21:43)
[2016-11-30] MEDS: Ondansetron INJ* 2 MG/ML VIAL IV PRN (11:43)
--- NOTE | 2016-11-30 11:50 | PN ---
Progress Note - Progress Note Date of Service: 11/30/16 Note: Subjective: Prior notes reviewed. No new issues over night. She is very pleasant, anxious to get out of the ICU and to the floor. Denies any focal numbness, tingling, weakness, speech changes , vision changes, swallowing difficulties. She has had no chest pain or cardiac symptoms. Blood pressures have been better. Temp Pulse Resp BP Pulse Ox 98.9 F 83 23 151/77 94 11/30/16 11:37 11/30/16 09:07 11/30/16 09:07 11/30/16 09:07 11/30/16 09:07 Medications: Acetaminophen (Tylenol Tab*) 650 mg PO Q4H PRN PRN Reason: HEADACHE/PAIN Al Hydrox/Mg Hydrox/Simethicone (Maalox Plus*) 30 ml PO Q4H PRN PRN Reason: UPSET STOMACH Aspirin (Aspirin Low Dose Tab*) 81 mg PO DAILY [facility] Last Admin: 11/30/16 08:34 Dose: 81 mg Atorvastatin Calcium (Lipitor*) 80 mg PO 1700 [facility] Last Admin: 11/29/16 16:39 Dose: 80 mg Clopidogrel Bisulfate (Plavix Tab*) 75 mg PO DAILY [facility] Last Admin: 11/30/16 08:34 Dose: 75 mg Docusate Sodium (Colace Cap*) 100 mg PO DAILY PRN PRN Reason: CONSTIPATION Last Admin: 11/30/16 06:34 Dose: 100 mg Fluticasone Propionate (Flonase Nasal [place] 50mcg*) 2 spray BOTH NARES DAILY [facility] Last Admin: 11/30/16 08:34 Dose: Not Given Metoprolol Tartrate (Lopressor Tab*) 12.5 mg PO Q12HR [facility] Last Admin: 11/30/16 10:10 Dose: 12.5 mg Ondansetron HCl (Zofran Inj*) 4 mg IV Q4H PRN PRN Reason: NAUSEA Last Admin: 11/30/16 11:43 Dose: 4 mg Pantoprazole Sodium (Protonix Tab (Nf)) 40 mg PO DAILY [facility] Last Admin: 11/30/16 08:34 Dose: 40 mg Tramadol HCl (Ultram*) 50 mg PO Q6H PRN PRN Reason: PAIN Last Admin: 11/29/16 08:10 Dose: 50 mg Imaging Reviewed: CTA, MRI showing basilar stenosis and areas of posterior circulation ischemia Exam: Awake, alert, oriented X 3, pleasant CTAB RRR Abdomen soft, NT Extremities, no C/C/E Neuro: CN: no facial droop, tongue midline, no dysarthria, PERRL, EOMi, facial sensation intact, VFF Moving all extremities antigravity, 5/5 throughout, no drift Sensation intact to LT/PP in the upper and lower extremities DTRS: symmetric BC, BR, Pat FtoN intact Following all commands Gait not tested this am Assessment and Plan: 85 year old s/p STEMI with stenting, neurologic deficits post cath brought on by hypotensive episodes. CTA shows severe basilar stenosis and MRI showed areas of ischemia. -Now that her blood pressures are more normalized, her symptoms have resolved. Clearly this is perfusion related. Recommend cautious control of blood pressure with maintenance above 120/80. Discussed symptoms of hypoperfusion and symptoms she needs to watch for. At this point, her blood pressures have been good and I do not think there is a need for augmentation. -Continue Aspirin/Plavix/Statin. I will follow along. Overall, she is doing well. I am ok for her to go to the floor today
[2016-11-30] MEDS: Atorvastatin* 80 MG TAB PO SCH (16:36)
[2016-12-01 04:57] LABS: Hematocrit 29 % (35-47); Hemoglobin 9.6 g/dl (12.0-16.0); Mean Corpuscular HGB Conc 33 g/dl (31-36); Mean Corpuscular Hemoglobin 31 pg (27-31); Mean Corpuscular Volume 92 fL (80-97); Mean Platelet Volume 10 um3 (7.4-10.4); Red Blood Count 3.14 10^6/ul (4.0-5.4); Red Cell Distribution Width 15 % (10.5-15); White Blood Count 10.2 10^3/ul (3.5-10.8)
[2016-12-01 05:07] LABS: BUN/Creatinine Ratio 15.5 (8-20); Calcium 8.5 mg/dL (8.6-10.3); EGFR African American 83.1 (>60); EGFR Non-African American 64.6 (>60); Potassium 3.5 mmol/L (3.5-5.0)
[2016-12-01] MEDS: Pantoprazole TAB (NF) 40 MG TAB PO SCH (07:52)
[2016-12-01] MEDS: Clopidogrel TAB* 75 MG PO SCH (07:52)
[2016-12-01] MEDS: Docusate CAP* 100 MG PO PRN (07:52)
[2016-12-01] MEDS: Aspirin Low Dose CHEW TAB* 81 MG PO SCH (07:55)
[2016-12-01] MEDS: Metoprolol Tartrate TAB* 25 MG PO SCH (07:56)
--- NOTE | 2016-12-01 10:07 | PN ---
Subjective Date of Service: 12/01/16 - CC: wants to go home, resolved CP Interval History: The patient has no CP. Slept well flat. Walking well. Some anorexia, no dark stools (anemic). No groin pain. The patient is anxious to go home. Medications Active Medications: Acetaminophen (Tylenol Tab*) 650 mg PO Q4H PRN PRN Reason: HEADACHE/PAIN Al Hydrox/Mg Hydrox/Simethicone (Maalox Plus*) 30 ml PO Q4H PRN PRN Reason: UPSET STOMACH Aspirin (Aspirin Low Dose Tab*) 81 mg PO DAILY [facility] Last Admin: 12/01/16 07:55 Dose: 81 mg Atorvastatin Calcium (Lipitor*) 80 mg PO 1700 [facility] Last Admin: 11/30/16 16:36 Dose: 80 mg Clopidogrel Bisulfate (Plavix Tab*) 75 mg PO DAILY [facility] Last Admin: 12/01/16 07:52 Dose: 75 mg Docusate Sodium (Colace Cap*) 100 mg PO DAILY PRN PRN Reason: CONSTIPATION Last Admin: 12/01/16 07:52 Dose: 100 mg Fluticasone Propionate (Flonase Nasal [place] 50mcg*) 2 spray BOTH NARES DAILY [facility] Last Admin: 11/30/16 08:34 Dose: Not Given Metoprolol Tartrate (Lopressor Tab*) 12.5 mg PO Q12HR [facility] Last Admin: 12/01/16 07:56 Dose: 12.5 mg Ondansetron HCl (Zofran Inj*) 4 mg IV Q4H PRN PRN Reason: NAUSEA Last Admin: 11/30/16 11:43 Dose: 4 mg Pantoprazole Sodium (Protonix Tab (Nf)) 40 mg PO DAILY [facility] Last Admin: 12/01/16 07:52 Dose: 40 mg Tramadol HCl (Ultram*) 50 mg PO Q6H PRN PRN Reason: PAIN Last Admin: 11/29/16 08:10 Dose: 50 mg Objective Vital Signs: Temp Pulse Resp BP Pulse Ox 98.2 F 67 16 122/62 97 12/01/16 08:11 12/01/16 08:11 12/01/16 08:11 12/01/16 08:11 12/01/16 03:25 Oxygen Devices in Use Now: None Appearance: Elderly woman, lying flat, comfortable. Eyes: No Scleral Icterus, PERRLA Ears/Nose/Mouth/Throat: Clear Oropharnyx, Mucous Membranes Moist Neck: Trachea Midline, No Thyroid Enlargement, Masses Respiratory: Symmetrical Chest Expansion and Respiratory Effort, Clear to Auscultation Cardiovascular: RRR - soft early peaking SM RUSB, stable. Abdominal: NL Sounds; No Tenderness; No Distention Skin: No Rash or Ulcers - pale and conjunctiva are pale, L groin with marked ecchymosis, mild induration, stable. Neurological: Alert and Oriented x 3 - no gross deficits sitting, formal exam not performed. Lines/Tubes/Other Access: Clean, Dry and Intact Peripheral IV Nutrition: Taking PO's Laboratory Results: 12/01/16 04:16 12/01/16 04:16 INR (Anticoag Therapy) 0.84 (0.89-1.11) L 11/28/16 11:35 APTT 23.5 seconds (26.0-36.3) L 11/28/16 11:35 Total Bilirubin 0.30 mg/dL (0.2-1.0) 11/28/16 05:50 AST 93 U/L (13-39) H 11/28/16 05:50 ALT 29 U/L (7-52) 11/28/16 05:50 Alkaline Phosphatase 68 U/L (34-104) 11/28/16 05:50 CK-MB (CK-2) 141.0 ng/mL (0.6-6.3) H 11/28/16 05:50 B-Natriuretic Peptide 36 pg/mL (-100) 11/27/16 12:26 Total Protein 5.5 g/dL (6.4-8.9) L 11/28/16 05:50 Albumin 3.1 g/dL (3.2-5.2) L 11/28/16 05:50 Globulin 2.4 g/dL (2-4) 11/28/16 05:50 Albumin/Globulin Ratio 1.3 (1-3) 11/28/16 05:50 Triglycerides 180 mg/dL 11/28/16 05:50 Cholesterol 164 mg/dL 11/28/16 05:50 LDL Cholesterol 93 mg/dL 11/28/16 05:50 HDL Cholesterol 34.6 mg/dL 11/28/16 05:50 08/11/27/16 11/28/16 12:55 18:03 01:00 Troponin I 0.86 H* 20.78 H* 49.34 H* 11/28/16 05:50 Troponin I 27.92 H* Diagnostic Imaging: Echo: 11/28/16: EF 35-40%, mild to mod MR, mod TR. EKG Data: Montior: NSR. 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 Moderate CM. Improving clinically. H+H lower today. Points of Discussion: CAD, s/p STEMI and stents: -continue BB, ASA, PLAVIX and high dose statin. -Recommend enrollment in cardiac rehab. -Needs wound check this week with Dr. Maurice or Dr. Ernst. -Needs follow up with Dr. Ernst (who sees her ). CM: BP is stable with low dose beta sekou. Dr Ham (neurology) wants BP as high as able to prevent recurrent neurological events, so no ACEI. Orthopnea of day before has resolved. Anemia: -progressed, likely related to procedure. -I recommend guiaic stool (in patient and out patient is OK). Per patient she is allergic to iron supplements (rash). I would recommend high iron foods on discharge and follow H+H. OK for discharge wrt stents/CAD with the above careful f/u and work up for anemia. Discharge planning recommended as it sounds like the patient provides a great amount of care for her and she needs to avoid strenuous exertion now and be in an environment that allows for her recovery.
[2016-12-01] MEDS: Fluticasone NASAL SPRAY 50MCG* 16 gm SPRAY BTL BOTH NARES SCH (10:39)
[2016-12-01 11:19] VITALS: BP 113/53
--- NOTE | 2016-12-01 19:20 | PN ---
PROGRESS NOTE: DATE OF PROGRESS NOTE: LOCATION: She is in 431, bed 1. HISTORY: Ms. Rice has had no issues overnight. She is very pleasant. She is anxious to leave the hospital. She denies any vision changes, any speech difficulties, any numbness, tingling, or weakness; otherwise, has been doing well and feels "good". PHYSICAL EXAMINATION: Vital Signs: Temp of 98.2, blood pressure of 132/61 to 122/62. General: She is a well-nourished, well-developed female, lying in a hospital bed, pleasant. HEENT: She is normocephalic and atraumatic. Sclerae anicteric. Mucous membranes are moist. Oropharynx is clear. Neck: Supple. Chest: Clear to auscultation bilaterally. Cardiovascular: Regular rate and rhythm. Abdomen: Nontender. Extremities: No edema. Neurologic: She is awake, alert, and oriented x3. Speech is fluent. There is no dysarthria. Repetition is intact. Cranial nerves II through XII. Her visual wu are full. Extraocular muscles are intact. Pupils are equal, round, and reactive. Face is symmetric. Sensation is intact. Tongue is midline. Oropharynx is symmetric. Palate raise is symmetric. Sternocleidomastoid and shoulder shrug are normal. She spontaneously moves all extremities. Antigravity was good. Resistance 4+/5 throughout. Tone and bulk are both normal. Sensation is intact to light touch and pinprick x4. Extremities: She follows all commands. No evidence of ataxia [id number]. LABORATORY DATA: Lab work today includes a white count of 10.2, hemoglobin of 9.6, hematocrit of 29. Basic metabolic profile was essentially normal. Calcium is 8.5. PLAN: Ms. Rice is doing well. There is no new issue. Continue to suspect that her neurologic symptoms are a result of hypoperfusion secondary to severe basilar stenosis. At this point, the plan is to continue to allow for some permissive hypertension, I would strive for systolic goal between 130 and 140/ 80 to 90s. We discussed the fact that when she goes to the bathroom or gets off the toilet or arises after sitting or lying down, she needs to be very careful as blood pressure tends to drop at those times. She needs to return to the ER immediately should she have any new symptoms. I would continue her aspirin and Plavix as well as statin unchanged. From my standpoint, she is clear to go home, but I defer to her primary care physician for the decision to discharge home. We will continue to follow while she is inpatient. [id number]/[facility] #: [id number] LATIAD
== END 2016-12-01 13:45 | disposition home or self-care (01) | DRG 246 ==
LOC: ED 11:10 → ICU 12:43 → MEDTELE 11-30 13:51
PROVIDERS: ADMIT Internal Medicine Cardiovascular Disease; ATTEND Specialist
PROC: 027034Z Dilation of Coronary Artery, One Artery with Drug-eluting Intraluminal Device, Percutaneous Approach (ICD-10-PCS; 2016-11-27)
PROC: 02C03ZZ Extirpation of Matter from Coronary Artery, One Artery, Percutaneous Approach (ICD-10-PCS; 2016-11-27)
PROC: B2111ZZ Fluoroscopy of Multiple Coronary Arteries using Low Osmolar Contrast (ICD-10-PCS; 2016-11-27)
PROC: B2151ZZ Fluoroscopy of Left Heart using Low Osmolar Contrast (ICD-10-PCS; 2016-11-27)
PROC: 4A023N7 Measurement of Cardiac Sampling and Pressure, Left Heart, Percutaneous Approach (ICD-10-PCS; principal; 2016-11-27 12:30)
DX: I21.09 ST elevation (STEMI) myocardial infarction involving other coronary artery of anterior wall (principal); I63.9 Cerebral infarction, unspecified; I95.9 Hypotension, unspecified; I42.9 Cardiomyopathy, unspecified; G81.94 Hemiplegia, unspecified affecting left nondominant side; T82.855A Stenosis of coronary artery stent, initial encounter; D64.9 Anemia, unspecified; R00.1 Bradycardia, unspecified; I10 Essential (primary) hypertension; I25.10 Atherosclerotic heart disease of native coronary artery without angina pectoris; E78.00 Pure hypercholesterolemia, unspecified; R60.0 Localized edema; K21.9 Gastro-esophageal reflux disease without esophagitis; Y71.2 Prosthetic and other implants, materials and accessory cardiovascular devices associated with adverse incidents; R29.810 Facial weakness; R29.705 NIHSS score 5; R06.01 Orthopnea; Y92.9 Unspecified place or not applicable; Z87.891 Personal history of nicotine dependence; Z82.49 Family history of ischemic heart disease and other diseases of the circulatory system; Z88.5 Allergy status to narcotic agent; I25.2 Old myocardial infarction; Z88.2 Allergy status to sulfonamides; Z86.718 Personal history of other venous thrombosis and embolism; Z88.7 Allergy status to serum and vaccine
CPT/HCPCS: 36415; 70450; 70496; 70498; 70551; 71250; 80048; 80053; 80061; 82270; 82550; 82553; 83605; 83721; 83874; 83880; 84484; 85025; 85027; 85610; 85730; 86850; 86900; 86901; 87641; 93005; 93306; 94760; 99156; 99157; A9270-GY; C1725; C1757; C1769; C1876; C1887; C9600-LD; C9606-LD; G8996-GN-CH; G8997-GN-CH; G8998-GN-CH; J0461; J1327; J1644; J2001; J2250; J2270; J2405; J3010; Q9967

== ENCOUNTER 2017-03-06 14:53 | Observation (INO) | payer MEDICARE, BC ==
[2017-03-06 16:24] LABS: Hematocrit 42 % (35-47); Mean Corpuscular HGB Conc 33 g/dl (31-36); Mean Corpuscular Hemoglobin 30 pg (27-31); Mean Corpuscular Volume 90 fL (80-97); Mean Platelet Volume 9 um3 (7.4-10.4); Red Blood Count 4.71 10^6/ul (4.0-5.4); Red Cell Distribution Width 17 % (10.5-15); White Blood Count 8.3 10^3/ul (3.5-10.8)
[2017-03-06 16:40] LABS: ALT 15 U/L (7-52); Albumin 4.5 g/dL (3.2-5.2); Alkaline Phosphatase 70 U/L (34-104); BUN/Creatinine Ratio 14.5 (8-20); Blood Urea Nitrogen 16 mg/dL (6-24); CO2 Carbon Dioxide 24 mmol/L (22-32); Calcium 9.5 mg/dL (8.6-10.3); Chloride 105 mmol/L (101-111); Creatine Kinase 76 U/L (10-223); EGFR African American 60.7 (>60); EGFR Non-African American 47.2 (>60); Globulin 2.9 g/dL (2-4); Glucose 120 mg/dL (70-100); Sodium 135 mmol/L (133-145); Total Protein 7.4 g/dL (6.4-8.9)
[2017-03-06 16:42] LABS: Troponin I 0.01 ng/mL (<0.04)
[2017-03-06 16:46] LABS: Anion Gap 6 mmol/L (2-11)
[2017-03-06 16:58] LABS: TSH (Thyroid Stimulating Horm) 2.55 mcIU/mL (0.34-5.60)
--- NOTE | 2017-03-06 17:44 | RAD ---
INDICATION: Syncope COMPARISON: Most recent CT of the brain dated November 28, 2016 TECHNIQUE: Contiguous axial sections of the brain were obtained from the skull base to the vertex without contrast. FINDINGS: Adjacent to the right of midline falx cerebra I there is a mostly calcified 1.5 x 2.2 cm mass that has not changed in since the September 11, 2012 CT of the brain. A calcified meningioma is favored. The ventricles, cisterns and sulci are within normal limits. There is periventricular and subcortical white matter hypoattenuation most consistent with chronic microvascular disease. More confluent hypoattenuating foci are seen in the bilateral basal ganglia, unchanged since the previous CT examination, likely chronic stable lacunar infarctions. Otherwise the hook-white matter differentiation is adequately maintained and there is no sulcal effacement. No significant focal abnormality or mass effect is present. There is no evidence for intracranial hemorrhage. No significant focal osseous abnormality is present. The visualized portion of the paranasal sinuses and mastoid air cells appear clear. IMPRESSION: Chronic findings described in body the report without CT evidence of acute intracranial pathology.
--- NOTE | 2017-03-06 17:45 | RAD ---
INDICATION: Syncope. Relevant surgical history includes "debi hole" secondary to subdural hematoma November 2011. COMPARISON: Most recent chest x-ray is dated November 23, 2011 TECHNIQUE: PA and lateral views of the chest were obtained. FINDINGS: The heart and mediastinum are normal in size and contour. The lungs are grossly clear. There is no evidence of large pleural effusion. Visualized bones are normal for the patient's age. There is no radiographic evidence of free air beneath the diaphragm IMPRESSION: No radiographic evidence of acute cardiopulmonary disease.
[2017-03-06 19:25] LABS: Urine Bacteria 1+ (Absent); Urine Bilirubin Negative (Negative); Urine Glucose Negative (Negative); Urine Nitrite Negative (Negative)
--- NOTE | 2017-03-06 20:36 | HP ---
CC: Dr. Gomez * [facility] MEDICINE HISTORY AND PHYSICAL: DATE OF ADMISSION: 03/06/17 ATTENDING PHYSICIAN: Pa Murcia MD * (dictation provided by Sabrina Andrews NP ). CHIEF COMPLAINT: Episode of unresponsiveness. HISTORY OF PRESENT ILLNESS: Ms. Rice is an 86-year-old female with past medical history of recent admission to our hospital in November 2016, during which time she had an ST elevation MN with placement of stent to LAD. The course was complicated by in-stent restenosis requiring a return to the catheterization lab during which time she had an episode with left-sided weakness and concern for stroke. Neurology consultation was obtained and their suspicion was that the patient likely had symptoms related to hypoperfusion in the setting of hypotension and significant basilar artery stenosis. Ms. Rice states she has been doing well enough physically since her discharge; however, she has had multiple deaths in the family this year with a brother, two brother- in-laws and her dying, all in the past few months. She has, therefore, been under a lot of stress. Today she was with family for Thanksgiving. She states this morning she woke up and felt that she had a bit of a cold. She took 2 cold medicine tablets, she is not sure what those were and 2 aspirin. She states her symptoms of cold have resolved. She had a couple of glasses of wine with dinner. While sitting at the dinner table, her family looked over to see her with her eyes closed and making some kind of smacking type lip movements. They called to her but she was unresponsive. The family laid her down on the ground and called the EMS. By the time of EMS arrival, the patient was awake. She was slightly confused in terms of what had happened but was appropriate and had no evidence of a postictal state. She did not lose continence of bowel or bladder. Ms. Rice denies any other complaints. At the time of arrival of the EMS, she reported some right rib discomfort but she states that has resolved. I will note that the patient's blood pressure was 138 /78 via EMS documentation on arrival. In the emergency room, Ms. Rice had vital signs which were unremarkable. The blood pressure was running 120s to 150s. She had her orthostatics checked and she was not orthostatic by vital sign criteria. She had a CT of the brain, which showed chronic findings described without evidence of acute intracranial pathology. Chest x-ray showed no acute pathology. EKG showed sinus rhythm with no evidence of ischemia when compared to previous. PAST MEDICAL HISTORY: 1. ST elevation MN in November 2016 with stents to LAD complicated by in-stent restenosis. 2. History of basilar artery stenosis with concern for symptomatic hypoperfusion at the time of ST elevation MN, November 2016. 3. DVT, 2011. 4. GI bleed, lower, 2012. 5. Subdural hematoma associated with trauma, 2011, status post evacuation. 6. Peripheral vascular disease with history of carotid endarterectomies. 7. Hypertension. 8. Hyperlipidemia. MEDICATIONS: 1. Nitroglycerin 0.4 mg sublingual q.5 minutes p.r.n. 2. Aspirin 81 mg p.o. daily. 3. Clopidogrel 75 mg p.o. daily. 4. Metoprolol succinate 25 mg p.o. daily. 5. Pantoprazole 40 mg p.o. daily. 6. Rosuvastatin 40 mg p.o. daily. ALLERGIES: INFLUENZA VACCINE, SULFA ANTIBIOTICS and CODEINE. FAMILY HISTORY: The patient's father had history of coronary artery disease and mother in her 80s of COPD. SOCIAL HISTORY: The patient is a former smoker but she quit in 1983. No history of significant alcohol or drug use, though she did drink 2 glasses of wine today on . States that her surrogate decision maker would be her daughterMaria De Jesus . REVIEW OF SYSTEMS: Constitutional: No fever, no chills, no unintended weight loss. Cardiac: No chest pain. No edema. Respiratory: No cough, hemoptysis, or shortness of breath. GI: No nausea, vomiting, diarrhea, abdominal pain. : No gross hematuria, dysuria. Neuro: No focal weakness or sensory loss. Eyes: No vision complaints. ENT: No dysphagia. Musculoskeletal: No arthralgias or myalgias. Skin: No rashes, lesions. Psych: No depression or anxiety. PHYSICAL EXAMINATION GENERAL: Ms. Rice is sitting up in the bed. She is frustrated and does not want to be admitted to the hospital but she is in no acute distress. VITAL SIGNS: Temperature 97.7, pulse rate 62, respiratory rate 15, O2 saturation 94% on room air. Blood pressure 110/69. HEENT: Extraocular movements are intact. LUNGS: Clear to auscultation bilaterally with no accessory muscle use and good aeration. HEART: S1, S2. No murmur, rub, or gallop and regular. ABDOMEN: Soft, nontender with bowel sounds positive x4. EXTREMITIES: No cyanosis or edema. NEUROLOGIC: She is alert. She is oriented x3. She moves all extremities equally. There is no facial asymmetry or focal weakness. SKIN: Intact. LABORATORY DATA: WBC 8.3, hemoglobin 14.0, hematocrit 42, platelet count 251, 000. Sodium 135, potassium is not available as it is hemolyzed, chloride 105, serum bicarbonate 24, BUN 16, creatinine 1.10, glucose 120. Troponin 0.01. BNP 228. TSH 2.55. CT brain is as read above. Chest x-ray is as read above. EKG is as read above. ASSESSMENT/PLAN: Ms. Rice is an 86-year-old female with recent ST elevation myocardial infarction in November 2016 complicated by in-stent restenosis and an episode of symptomatic hypoperfusion suspected to be secondary to significant basilar artery stenosis. She presents to the hospital today with concern for an episode of unresponsiveness. Our plans are for observation in the hospital for the followin. Episode of unresponsiveness: I do not have a strong suspicion for seizure activity as the patient was reported to be appropriate immediately on awakening from her episode. She also had no loss of bowel or bladder. It is possible that she had another episode of hypoperfusion as it happened during the last hospitalization from which she was symptomatic based on her basilar artery stenosis. However, I note that her blood pressure was 138/78 per the read from EMS. Plan to watch her blood pressure closely and adjust her metoprolol as needed. It is also possible that she had a symptomatic arrhythmia, therefore she will continue on telemetry monitoring. We will recheck orthostatic vitals in the a.m. 2. History of ST elevation myocardial infarction: Continue aspirin and Plavix and metoprolol. 3. History of lower GI bleed: Continue pantoprazole. 4. Hyperlipidemia: Continue rosuvastatin. 5. Code status: Full code. 6. DVT prophylaxis: Heparin subcu. 7. Disposition to telemetry floor. TIME SPENT: Approximately 60 minutes was spent on the admission of this patient , more than half the time was spent with patient at the bedside reviewing the events leading up to this hospitalization, performing physical examination, reviewing my plan of care. SABRINA ANDREWS NP [id number]/[facility] #: [id number] LIAM
[2017-03-06 20:55] LABS: Magnesium 2.4 mg/dL (1.9-2.7)
[2017-03-06] MEDS: Heparin VIAL(*) 5000 UNITS/ML VIAL (FIVE THOUSAND) SUBCUT SCH (21:29)
[2017-03-07] MEDS: Heparin VIAL(*) 5000 UNITS/ML VIAL (FIVE THOUSAND) SUBCUT SCH (05:34)
--- NOTE | 2017-03-07 08:28 | ED ---
Mehdi Davis Angela, scribed for Julian Farrell MD on 03/06/17 at 1520 . Syncope/Near Syncope - HPI Summary HPI Summary: This pt is a 86 y/o female presenting to [facility] c/o syncope today. Pt reports she was eating dinner with her family, getting ready to wash dishes when she had a syncopal episode while sitting down. She notes she was told by her family she passed out, although she doesn't remember. Her syncopal episode was witnessed by her family. She denies feeling headache, dizziness, chest pain, SOB prior to her syncope. Pt now c/o left sided rib pain. PMHx includes MT in 2007. - History Of Current Complaint Chief Complaint: EDSyncope Time Seen by Provider: 03/06/17 15:09 Hx Obtained From: Patient Onset/Duration: Sudden Onset, Resolved Timing: Minutes Context: Witnessed Activity At Onset: At Rest - sitting down Associated Head Trauma: No Alleviating Factor(s): Spontaneous Resolution Associated Signs And Symptoms: Other - left rib pain - Allergies/Home Medications Allergies/Adverse Reactions: Allergies Allergy/AdvReac Type Severity Reaction Status Date / Time Influenza Vaccines Allergy Unknown Unknown Verified 11/27/16 11:53 Reaction Details Sulfa Antibiotics Allergy Nausea Verified 11/27/16 11:54 Codeine AdvReac Mild Nausea And Verified 11/27/16 11:53 Vomiting PMH/Surg Hx/FS Hx/Imm Hx Endocrine/Hematology History: Reports: Hx Anticoagulant Therapy - HX COUMADIN Denies: Hx Diabetes Cardiovascular History: Reports: Hx Coronary Artery Disease, Hx Deep Vein Thrombosis - RLE DVT 2011, Hx Hypercholesterolemia, Hx Hypertension, Hx Myocardial Infarction, Other Cardiovascular Problems/Disorders - CHRONIC LE EDEMA, BUT PT STATES NO LONGER ON DIURETIC Denies: Hx Pacemaker/ICD GI History: Reports: Hx Gastroesophageal Reflux Disease Denies: Hx Gastrointestinal Bleed - NEW DX LOWER GI BLEED 12/29/12 Sensory History: Reports: Hx Contacts or Glasses, Hx Hearing Aid - removed Opthamlomology History: Reports: Hx Contacts or Glasses Neurological History: Reports: Other Neuro Impairments/Disorders - SUBDURAL HEMATOMA WITH IDA HOLE 11/2011 Denies: Hx Dementia, Hx Developmental Delay, Hx Headaches, Hx Migraine, Hx Nerve Disease, Hx Seizures, Hx Spinal Cord Injury, Hx Transient Ischemic Attacks (TIA) Psychiatric History: Denies: Hx Panic Disorder - Surgical History Surgery Procedure, Year, and Place: IDA HOLE R/T SUBDURAL HEMATOMA 11/2011. PERCUTANIOUS TRANSLUMINAL CORONARY ANGIOPLASTY. catherterization 11/27/16- ok per paperwork on later papers. bilateral carotids Hx Anesthesia Reactions: No Infectious Disease History: No Infectious Disease History: Denies: Traveled Outside the [place] in Last 30 Days - Family History Known Family History: Positive: Cardiac Disease, Hypertension - Social History Alcohol Use: Daily Alcohol Amount: One glass of wine a day Hx Substance Use: No Substance Use Type: Reports: None Hx Tobacco Use: No Smoking Status (MU): Never Smoked Tobacco Review of Systems Negative: Fever, Chills Eyes: Negative ENT: Negative Negative: Chest Pain Negative: Shortness Of Breath Musculoskeletal: Other - left sided rib pain Neurological: Negative - dizziness Positive: Syncope. Negative: Headache All Other Systems Reviewed And Are Negative: Yes Physical Exam - Summary Physical Exam Summary: GENERAL NORMAL EXAM: VITAL SIGNS: Reviewed. GENERAL: Patient is a well-developed and nourished female who is lying comfortable in the stretcher. Patient is not in any acute respiratory distress. HEAD AND FACE: No signs of trauma. No ecchymosis, hematomas or skull depressions. No sinus tenderness. EYES: PERRLA, EOMI x 2, No injected conjunctiva, no nystagmus. EARS: Hearing grossly intact. Ear canals and tympanic membranes are within normal limits. MOUTH: Oropharynx within normal limits. NECK: Supple, trachea is midline, no adenopathy, no JVD, no carotid bruit, no c- spine tenderness, neck with full ROM. CHEST: Symmetric, no tenderness at palpation LUNGS: Clear to auscultation bilaterally. No wheezing or crackles. CVS: Regular rate and rhythm, S1 and S2 present, no murmurs or gallops appreciated. ABDOMEN: Soft, non-tender. No signs of distention. No rebound no guarding, and no masses palpated. Bowel sounds are normal. EXTREMITIES: FROM in all major joints, no edema, no cyanosis or clubbing. MSK: Tenderness on the left rib cage and the mid axillary line. NEURO: Alert and oriented x 3. No acute neurological deficits. Speech is normal and follows commands. SKIN: Dry and warm Triage Information Reviewed: Yes Vital Signs On Initial Exam: Initial Vitals Temp Pulse Resp BP Pulse Ox 97.7 F 65 17 123/63 95 03/06/17 15:02 03/06/17 15:02 03/06/17 15:02 03/06/17 15:02 03/06/17 15:02 Vital Signs Reviewed: Yes Diagnostics - Vital Signs Vital Signs Temp Pulse Resp BP Pulse Ox 03/06/17 15:02 97.7 F 65 17 123/63 95 - Laboratory Result Diagrams: 03/06/17 16:18 03/06/17 17:28 Lab Statement: Any lab studies that have been ordered have been reviewed, and results considered in the medical decision making process. - Radiology Chest XR Xray Interpretation: No Acute Changes - IMPRESSION: No radiographic evidence of acute cardiopulmonary disease. ED physician has reviewed this radiology report and agrees. Radiology Interpretation Completed By: Radiologist - CT Brain CT CT Interpretation: No Acute Changes - IMPRESSION: Chronic findings described in body the report without CT evidence of acute intracranial pathology. ED physician has reviewed this radiology report and agrees. CT Interpretation Completed By: Radiologist - EKG 1556 Cardiac Rate: NL EKG Rhythm: Sinus Rhythm - at 63 bpm EKG Interpretation: T wave inversion in V2,V3, and V4. Q waves in III. EKG Comparison: No Significant Change - similar to prior EKG done on 11/30/2016. Course/Dx Assessment/Plan: This pt is a 86 y/o female presenting to [facility] c/o syncope today. Pt reports she was eating dinner with her family, getting ready to wash dishes when she had a syncopal episode while sitting down. She notes she was told by her family she passed out, although she doesn't remember. Her syncopal episode was witnessed by her family. She denies feeling headache, dizziness, chest pain, SOB prior to her syncope. Pt now c/o left sided rib pain. PMHx includes MT in 2007. Test results without any significant abnormalities. Head CT without an acute pathology. However, since the pt had a syncopal episode and positive loss of consciousness. I discussed the pts case with Dr. Murcia, who accepted the pt for admission. Pt is hemodynamically stable, alert and oriented x3. - Diagnoses Provider Diagnoses: Syncope - Physician Notifications Discussed Care of Patient With: Pa Murcia Time Discussed With Above Provider: 17:39 Instructed by Provider To: Other - I discussed the pt's case with Dr. Murcia, who has accepted the pt for admission. Discharge - Discharge Plan Condition: Stable Disposition: ADMITTED TO [facility] Referrals: Aroldo Gomez MD [Primary Care Provider] - The documentation as recorded by the Mehdi chowdary Angela accurately reflects the service I personally performed and the decisions made by me, Julian Farrell MD.
[2017-03-07] MEDS ORDERED: CMC: Rosuvastatin (NF) 20 MG TAB PO SCH (09:00)
[2017-03-07] MEDS ORDERED: Metoprolol Succinate XL TAB* 25 MG PO SCH (09:00)
[2017-03-07] MEDS ORDERED: CMC: Pantoprazole TAB (NF) 40 MG TAB PO SCH (09:00)
[2017-03-07] MEDS ORDERED: Clopidogrel TAB* 75 MG PO SCH (09:00)
[2017-03-07] MEDS ORDERED: Aspirin EC Low Dose* 81 MG TAB.EC PO SCH (09:00)
[2017-03-07 09:55] VITALS: BP 172/70
--- NOTE | 2017-03-08 00:01 | DS ---
CC: Dr. Gomez * DISCHARGE SUMMARY: DATE OF ADMISSION: 03/06/17 DATE OF DISCHARGE: 03/07/17 PRIMARY CARE PROVIDER: Dr. Gomez. DISCHARGING PROVIDER: DANII Angeles SUPERVISING PHYSICIAN: Jammie Leahy DO * (DICTATED BY DANII ANGELES) PRIMARY DISCHARGE DIAGNOSIS: Unresponsive episode - unsure of exact etiology, perhaps psychogenic versus basilar artery insufficiency. SECONDARY DISCHARGE DIAGNOSES: 1. Basilar artery stenosis. 2. Coronary artery disease without evidence of acute coronary syndrome. 3. History of subdural hematoma. 4. Peripheral arterial disease, status post bilateral endarterectomy. 5. Hypertension. 6. Hyperlipidemia. 7. History of prior deep vein thrombosis. DISCHARGE MEDICATIONS: 1. Aspirin 81 mg p.o. daily. 2. Plavix 75 mg p.o. daily. 3. Metoprolol succinate 25 mg p.o. daily. 4. Nitroglycerin 0.4 mg sublingual q.5 minutes as needed for chest pain. 5. Protonix 40 mg p.o. daily. 6. Crestor 40 mg p.o. daily. Medication changes: None. HOSPITAL IMAGIN. CT of the brain shows no acute pathology. 2. Chest x-ray shows no acute pathology. HOSPITAL COURSE: This is an 86-year-old female with a history of coronary artery disease, status post ST elevation AL in November 2016, which was complicated by a stent restenosis and episode of acute right-sided weakness that was thought to be due to hypoperfusion secondary to basilar artery stenosis , but without acute ischemia at that time. The patient was sitting at her [employer] dinner table with all of her family members with the exception of her , who had just a couple of months before. She says that she was feeling quite emotional about his absence from the [employer] table after 67 years of marriage. She denies feeling short of breath, having chest pain or any dizziness and she suddenly lost consciousness. Family members state that she had some lip smacking, no incontinence, no gross motor movements , and regained consciousness within a few seconds. Initial labs in the emergency department were really unremarkable. CBC was completely within normal limits. Comprehensive metabolic panel was unremarkable. Troponin negative. BNP slightly elevated, but near her baseline. Unremarkable urinalysis and CT of the brain and chest x-ray were both within normal limits. Vital signs were unremarkable. The patient was subsequently admitted to a period of observation, maintained on continuous telemetry. Orthostatic vital signs were completed in the emergency department and again prior to discharge, negative on both occasions. She remained asymptomatic throughout her hospital stay. Regarding the etiology of her unresponsive episode, there are multiple possibilities including a psychogenic component due to anxiety and emotional strain surrounding the recent lost of her and her first holiday without him. Also could consider that she had some transient hypotension due to diversion of blood supply to the gut following a large meal and due to her basilar artery stenosis, had lost consciousness. She otherwise remained stable throughout her hospital stay and I do not see any indication for further workup or adjustment to her home medications. DISPOSITION AND FOLLOWUP PLAN: The patient is being discharged to home without any changes to her home medications. I do recommend that she follow up with her primary care provider next week regarding this brief hospital stay. DANII ANGELES [id number]/[facility] #: [id number] LIAM
== END 2017-03-07 10:27 | disposition home or self-care (01) ==
LOC: ED 14:53 → MEDTELE 17:46
PROVIDERS: ADMIT Hospitalist; ATTEND Hospitalist
DX: R40.4 Transient alteration of awareness (principal); I65.1 Occlusion and stenosis of basilar artery; I25.10 Atherosclerotic heart disease of native coronary artery without angina pectoris; I10 Essential (primary) hypertension; I73.9 Peripheral vascular disease, unspecified; E78.5 Hyperlipidemia, unspecified; Z86.718 Personal history of other venous thrombosis and embolism; Z79.01 Long term (current) use of anticoagulants; Z79.82 Long term (current) use of aspirin; Z79.899 Other long term (current) drug therapy; Z88.7 Allergy status to serum and vaccine; Z88.2 Allergy status to sulfonamides; I25.2 Old myocardial infarction; Z95.5 Presence of coronary angioplasty implant and graft; Z87.891 Personal history of nicotine dependence; R94.31 Abnormal electrocardiogram [ECG] [EKG]
CPT/HCPCS: 36415; 70450; 71020; 80053; 81003; 81015; 82550; 83735; 83880; 84443; 84484; 85025; 87086; 93005; 96372; 99283; A9270-GY; G0378; J1644